=== PATIENT | male | born 1960 | race Caucasian/White ===

== ENCOUNTER 2019-05-09 13:05 | Inpatient (IN) | payer MEDICARE ==
[2019-05-09] MEDS ORDERED: Acetaminophen 325 MG TAB PO PRN (15:21)
[2019-05-09] MEDS ORDERED: Senokot S 8.6-50 MG TAB PO PRN (15:21)
[2019-05-09] MEDS ORDERED: Bisacodyl 10 MG SUPP PR PRN (15:21)
[2019-05-09] MEDS ORDERED: Labetalol HCl 100 MG/20 ML VIAL SLOW IVP PRN (15:21)
[2019-05-09] MEDS ORDERED: Dextrose 5% in Water 1,000 ML IV PRN (15:21)
[2019-05-09] MEDS ORDERED: Guaifenesin DM 100-10/5 ML UDCUP PO PRN (15:21)
[2019-05-09] MEDS ORDERED: Dextrose 50% Abboject 50 ML SYRINGE SLOW IVP PRN (15:21)
[2019-05-09] MEDS ORDERED: HumaLOG 300 UNITS/3 ML VIAL SC PRN (15:21)
[2019-05-09] MEDS ORDERED: Ondansetron PF 4 MG/2 ML Vial IVP PRN (15:21)
--- NOTE | 2019-05-09 16:09 | HP ---
REASON FOR ADMISSION: Possible CVA with left hemiparesis. HISTORY OF PRESENTING ILLNESS: The patient gives history of waking up on the floor yesterday. He apparently fell out of bed. This happened around 10 a.m. yesterday after the left to work at 9. He took a while for him to make it back to his bed. This morning when he woke up, he felt numbness on his entire left side. He had difficulty chewing. He has no teeth, but the patient was literally using his hand to crush his jaws together. This did not feel right for him, and the finally took him to [facility], from where he was transferred here for higher level of care. Has no complaints of trouble swallowing. No complaints of chest pain, palpitation, PND, or orthopnea. He normally ambulates to the mailbox and back in his house. He has always had left lower extremity weakness due to disk related spine injury. PAST MEDICAL AND SURGICAL HISTORY: Diabetes mellitus type 2, depression with psychosis, osteoarthritis, congenital absence of right thumb, prior history of lumbar disk disease with lumbar spine abscess, three back surgeries, appendectomy, cholecystectomy, tonsillectomy, prior history of psychiatric hospitalization, dementia. CURRENT MEDICATIONS: The patient is on, 1. Metformin 1000 mg twice daily. 2. Benztropine 1 mg twice daily. 3. Glimepiride 1 mg q.p.m. 4. Trazodone 100 mg p.o. at bedtime. 5. Escitalopram 20 mg p.o. daily. 6. Clonazepam 1 mg 3 times daily. 7. The patient's mentions that he cannot afford dementia medications including rivastigmine and Namenda. ALLERGIES: HE IS ALLERGIC TO BACTROBAN, CLINDAMYCIN, DIPHENHYDRAMINE, NORCO, PENICILLIN, SULFA, AND VANCOMYCIN. PERSONAL HISTORY: Does not abuse alcohol or drugs. No history of smoking. Lives with his . FAMILY HISTORY: Mother in her 60s. She had history of breast cancer with bilateral mastectomy with recurrence. Father is living and is in his 80s. He has known history of coronary artery disease. REVIEW OF SYSTEMS: CONSTITUTIONAL: Negative for weight loss or gain, ability to conduct usual activities. SKIN: Negative for rash, itching. EYES: Negative for double vision, pain. ENT/MOUTH: Negative for nose bleeding, neck stiffness, pain, tenderness. CARDIOVASCULAR: Negative for palpitations, dyspnea on exertion, orthopnea. RESPIRATORY: Negative for shortness of breath, wheezing, cough, hemoptysis, fever or night sweats. GASTROINTESTINAL: Negative for poor appetite, abdominal pain, heartburn, nausea, vomiting, constipation, or diarrhea. GENITOURINARY: Negative for urgency, frequency, dysuria, nocturia. MUSCULOSKELETAL: Negative for pain, swelling. NEUROLOGIC/PSYCHIATRIC: Negative for anxiety, depression. ALLERGY/IMMUNOLOGIC: Negative for skin rash, bleeding tendency. PHYSICAL EXAMINATION: GENERAL: The patient is a 59-year-old male, who is currently not in any acute distress. VITAL SIGNS: Blood pressure 150/74, pulse 60 per minute, respiratory rate 20 per minute, temperature 97.6 degrees Fahrenheit, saturating 100% on room air. NECK: Supple. No elevated JVD. HEENT: Eyes; extraocular muscles intact. Pupils are reacting to light. Oral cavity, mucous membranes are moist. No exudates or congestion. Please note, the patient has no teeth in his mouth. CARDIOVASCULAR: S1 and S2 heard. Regular rhythm. RESPIRATORY: Air entry 1+ bilateral. Scattered rhonchi plus. No rales or wheezes. ABDOMEN: Soft. Bowel sounds heard. No tenderness, rigidity, or guarding. EXTREMITIES: No peripheral edema or calf tenderness. VASCULAR: Peripheral pulses 1+ bilateral. No ischemic ulcerations or gangrene. CENTRAL NERVOUS SYSTEM: The patient appears to have voluntary withholding of movement of the left upper extremity. He has chronic left lower extremity weakness. He is able to move with gravity and a little 10 to 20 degrees above gravity in his left lower extremity. Left upper extremity: The patient can move it, and when asked to touch his finger, he does, but on second or third attempt, the patient tries to keep it close to his hand and has difficulty raising it up again. Likely has voluntary withholding. No facial droop. Extraocular muscles are intact. Gait was not tested. Reflexes are 2+ bilateral. Babinski is downgoing. PSYCHIATRIC: No obvious hallucinations or delusions. LABORATORY DATA: CT brain without contrast done showed no acute finding. Chest x-ray, no acute finding. EKG done shows sinus bradycardia at 57 beats per minute. There is poor R-wave progression. Serum glucose 184, BUN 11, creatinine 1.0, ALT 58, alkaline phosphatase 105, AST 32, total bilirubin 1.0, albumin 4.7. First set of troponin is negative. PT, INR, and PTT within normal limits. Hemoglobin and hematocrit 15 and 49, platelet count 389, MCV is 84 with white count of 8.8. CLINICAL IMPRESSION AND PLAN: The patient will be admitted to stroke unit for suspected left hemiparesis. The patient has had similar symptoms for nearly 24 to [address] scan done at [facility], does not reveal any structural findings of cerebrovascular accident on the CT scan. The patient also has voluntary withholding when he tries to move his extremities. He definitely has left lower extremity weakness, which appears to be chronic, but mentions that it has gotten more dense. We will obtain MRI in the morning. Neurology consultation with Dr. Mago Harrell. He will be on aspirin and Lipitor 40 mg daily. We will continue his home dose of Cogentin, trazodone, escitalopram as before, and glimepiride as well. Echo with 2D Doppler for left ventricular function and to rule out thrombus. He will be on mechanical soft heart healthy 1800 kilocalorie diet. We will continue to closely monitor him on stroke unit. Code status was discussed with him, and he wants to be a full code. Job ID: [id number]
[2019-05-09 17:47] VITALS: BMI 33.5
[2019-05-09] MEDS: Atorvastatin Calcium 40 MG TAB PO SCH (20:35)
[2019-05-09] MEDS: traZODone HCl 50 MG TAB PO SCH (20:36)
[2019-05-09] MEDS: clonazePAM 1 MG TAB PO SCH (20:36)
[2019-05-09] MEDS: Benztropine 1 MG TAB PO SCH (20:36)
[2019-05-10 04:49] LABS: #Basophils 0.1 thou/uL (0.0-0.2); #Eosinphils 0.2 thou/uL (0.0-0.7); #Lymphocytes 3.1 thou/uL (1.20-3.40); #Monocytes 0.7 thou/uL (0.11-0.59); #Neutrophils 3.8 thou/uL (1.40-6.50); %Basophils 0.8 % (0.0-1.0); %Lymphocytes 39.4 % (21.0-51.0); %Monocytes 8.4 % (0.0-10.0); %Neutrophils 48.4 % (42.0-75.0); Hemoglobin 13.6 g/dL (14.0-18.0); Mean Corpuscular HGB CONC 33.9 g/dL (32.0-36.0); Mean Corpuscular Hemoglobin 28.6 pg (27.0-31.0); Mean Corpuscular Volume 84.3 fL (78.0-98.0); Mean Platelet Volume 6.4 fL (7.4-10.4); Platelet Count 320 thou/uL (130-400); RBC Distribution Width 12.3 % (11.5-14.5); Red Blood Cell (RBC) Count 4.77 mill/uL (4.70-6.10); White Blood Cell (WBC) Count 7.8 thou/uL (4.8-10.8)
[2019-05-10 05:17] LABS: Anion Gap 11 mmol/L (10-20); BUN (Urea Nitrogen) 13 mg/dL (8.4-25.7); Calc. Creatinine Clearance 148 mL/min (70-130); Calcium 8.6 mg/dL (7.8-10.44); Carbon Dioxide 24 mmol/L (22-29); Cardiac Risk 5.1 (Less than 4.5); Chloride 104 mmol/L (98-107); Cholesterol 162 mg/dl (< 200 Desired); Estimated GFR-MDRD Greater than 90; Glucose 181 mg/dL (70-105); HDL Cholesterol 32 mg/dL (>60 Neg Risk); LDL Cholesterol, Calculated 90 mg/dL; Potassium 3.9 mmol/L (3.5-5.1); Sodium 135 mmol/L (136-145); Triglycerides 201 mg/dL (Less than 150)
[2019-05-10] MEDS ORDERED: Lorazepam 2 MG/ML VIAL SLOW IVP SCH (06:00)
[2019-05-10] MEDS: HumaLOG 300 UNITS/3 ML VIAL SC PRN ×3 (06:32→18:00)
[2019-05-10] MEDS ORDERED: Glimepiride 1 MG TAB PO SCH (08:00)
[2019-05-10] MEDS: Escitalopram Oxalate 20 mg Tablet PO SCH (09:11)
[2019-05-10] MEDS: Enoxaparin Sodium 40 MG/0.4 ML SYRINGE SC SCH (09:12)
[2019-05-10] MEDS: Benztropine 1 MG TAB PO SCH ×2 (09:12→20:43)
[2019-05-10] MEDS: Aspirin 81 mg Enteric Coated Tablet PO SCH (09:12)
[2019-05-10] MEDS: clonazePAM 1 MG TAB PO SCH ×3 (09:12→20:44)
--- NOTE | 2019-05-10 11:53 | CON ---
DATE OF CONSULTATION: 05/10/2019 This consult is via telemedicine. CHIEF COMPLAINT: Acute stroke. HISTORY OF PRESENT ILLNESS: The patient reports he fell out of bed while sleeping and this is the first time that ever happened to him, and he also felt the left side was weaker, and he also reports slurring of words and facial droop. He could not chew on the right side, so he was holding his jaw. This was the reason why he was brought into the hospital. No history of any numbness. The patient has no loss of consciousness. PAST MEDICAL HISTORY: 1. Lower back problems with multiple lower back surgeries and also a disk disease with lumbar spine abscess in the past resulting in baseline left lower extremity weakness. 2. Diabetes. 3. Depression with psychosis. 4. Osteoarthritis. 5. Congenital absence of the right thumb. PAST SURGICAL HISTORY: 1. Three back surgeries. 2. Cholecystectomy. 3. Tonsillectomy. HOME MEDICATIONS: 1. Metformin. 2. Benztropine. 3. Glimepiride. 4. Trazodone. 5. Escitalopram. 6. Clonazepam. He is on medicines for dementia, but he has not taken those due to financial issues. ALLERGIES: HE IS ALLERGIC TO: 1. BACTROBAN. 2. CLINDAMYCIN. 3. DIPHENHYDRAMINE. 4. NORCO. 5. PENICILLIN. 6. SULFA. 7. VANCOMYCIN. SOCIAL HISTORY: Nonsmoker. No alcohol. Lives with his . He is disabled. 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 FAMILY HISTORY: His mother in her 60s from breast cancer which metastasized to bone. He thinks she might have been in her late 60s to early 70s. Father is currently in his late 80s. He has coronary artery disease with stents and had a coronary bypass graft. He has 1 brother who is healthy. REVIEW OF SYSTEMS: PULMONARY: Negative for shortness of breath or cough. GI: Negative for nausea, vomiting, or diarrhea. PSYCHIATRIC: Positive for depression. NEUROLOGIC: Positive for left-sided weakness and falling out of bed. OPHTHALMOLOGIC: No double vision. ENT: Normal. LABORATORY DATA: White count is 7.8, hemoglobin 13.6, hematocrit 40.2, platelet count 320. Chemistry: Sodium 135, potassium 3.9, chloride 104, bicarb 24, BUN 13, creatinine 0.84, glucose 181, triglycerides 201, cholesterol 162, LDL 90, HDL 32. IMAGING STUDIES: His MRI is currently pending. PHYSICAL EXAMINATION: VITAL SIGNS: Temperature 97.5, pulse 57, blood pressure 139/83, respiratory rate is 20, O2 sats 99. GENERAL APPEARANCE: Well-built, well-nourished gentleman, who is comfortable in bed. In general exam, we can note that the patient had right upper extremity atrophy with absence of thumb on the right side. He also has a smaller right leg. In addition, most notable is jaw movement. CHEST: Clear vesicular breathing. CARDIOVASCULAR: S1, S2 heard. No murmurs. ABDOMEN: Soft. NEUROLOGICAL: Higher intellectual functions: Normal orientation to time, place, person. Appropriate conversation. Cranial nerves: 2 through 12 normal. Extraocular movements were abnormal with roving eye movements, more so on the right compared to left. He was unable to focus, but denied any double vision. Sensory: Decreased sensation on the left side of the face and mild facial asymmetry with left nasolabial fold flattening. Tongue midline. Normal elevation of palate. Normal hearing bilaterally. Motor: Bulk was decreased in the right upper extremity and congenital absence of thumb. Tone was normal bilaterally. Strength was 3/5 in the left side. In the right upper extremity, also the strength was 4/5. In the right lower, 5/5. Muscle groups tested are deltoid, biceps, triceps, wrist extension and flexion, finger extension and flexion, iliopsoas, hamstrings, quadriceps, ankle dorsiflexion and plantar flexion bilaterally. Cerebellar: Normal [id number] on the right. IMPRESSION AND PLAN: The patient with primary abnormality of absence of thumb on the right side and prior atrophy of the right side. He now presents with left-sided weakness after a fall from the bed and he fell out of bed during his sleep. On exam, he does have left-sided weakness along with sensory loss on the left side, and he has tardive dyskinesia in addition with the jaw and eye movements which is secondary to his prior exposure to Geodon. At this time, we need to establish whether he did have a stroke. I do suspect a mild ischemic event in basal ganglia on the right side, likely internal capsule event. I will wait for MRI scan to confirm suspicion of stroke. If he did have a stroke, please start him on aspirin along with statin. The patient also will need to see Dr. Richardson as outpatient for his tardive dyskinesia, and I will see him as needed. Please call me if you have any further questions. Job ID: [id number]
--- NOTE | 2019-05-10 15:11 | MRI ---
MRI brain without IV contrast: Multiplanar and multisequential imaging of brain obtained according to protocol. INDICATIONS: Stroke COMPARISON: none FINDINGS: Exam is degraded due to motion artifact. Ventricles have normal size shape and position. No evidence of restricted diffusion. Mild chronic ischemic white matter change. No evidence of mass or edema. Intracranial internal carotid arteries, proximal cerebral arteries, and basilar arteries show normal flow voids. Dural venous sinuses appear patent. Visualized paranasal sinuses and mastoids appear clear. Orbits appear unremarkable. Bony calvarium and soft tissues of the scalp appear unremarkable. IMPRESSION: No acute process identified
--- NOTE | 2019-05-10 17:35 | PDOC.HOSPP ---
- Subjective Encounter Date: 05/10/19 Encounter Time: 08:45 Subjective: no new complaints feels better is eating well - Objective Vital Signs & Weight: Vital Signs (12 hours) Temp Pulse Pulse Pulse Resp BP BP 05/10/19 15:19 97.3 F L 55 L 16 05/10/19 11:30 97.9 F 58 L 20 05/10/19 11:02 57 L 60 141/76 H 162/89 H 05/10/19 07:54 97.5 F L 57 L 20 BP Pulse Ox 05/10/19 15:19 151/81 H 98 05/10/19 11:30 144/82 H 99 05/10/19 11:02 05/10/19 07:54 139/83 99 Weight Admit Weight 247 lb 1.6 oz Weight 247 lb 1.6 oz I&O: 05/09/19 05/10/19 05/11/19 06:59 06:59 06:59 Intake Total 390 Output Total 1730 405 Balance -1340 -405 Result Diagrams: 05/10/19 04:31 05/10/19 04:31 Additional Labs: Accuchecks 05/10/19 05/10/19 05/10/19 16:43 10:39 06:03 POC Glucose 205 H 212 H 168 H 05/09/19 20:17 POC Glucose 159 H Hospitalist ROS - Medication Medications: Active Medications Generic Name Dose Route Start Last Admin Trade Name Freq PRN Reason Stop Dose Admin Acetaminophen 650 mg 05/09/19 15:21 05/09/19 18:07 Tylenol PO 650 mg Q4H PRN Administration Headache/Fever/Mild Pain (1-3) Aspirin 81 mg 05/10/19 09:00 05/10/19 09:12 Ecotrin PO 81 mg DAILY NIYA Administration Atorvastatin Calcium 40 mg 05/09/19 21:00 05/09/19 20:35 Lipitor PO 40 mg HS NIYA Administration Benztropine Mesylate 1 mg 05/09/19 21:00 05/10/19 09:12 Cogentin PO 1 mg BID NIYA Administration Clonazepam 1 mg 05/09/19 21:00 05/10/19 15:18 Klonopin PO 1 mg TID NIYA Administration Enoxaparin Sodium 40 mg 05/10/19 09:00 05/10/19 09:12 Lovenox SC 40 mg 0900 NIYA Administration Escitalopram Oxalate 20 mg 05/10/19 09:00 05/10/19 09:11 Lexapro PO 20 mg DAILY NIYA Administration Glimepiride 1 mg 05/10/19 08:00 05/10/19 11:55 Amaryl PO 1 mg QAM-WM NIYA Administration Insulin Human Lispro 0 units 05/09/19 15:21 05/10/19 11:54 Humalog SC 4 unit .MODERATE SLIDING SC PRN Administration Moderate Correctional Scale Sodium Chloride 10 ml 05/09/19 15:21 05/09/19 20:35 Flush - Normal Saline IVF 10 ml PRN PRN Administration Saline Flush Trazodone HCl 100 mg 05/09/19 21:00 05/09/19 20:36 Desyrel PO 100 mg HS NIYA Administration - Exam General Appearance: awake alert Eye: PERRL, anicteric sclera ENT: no oropharyngeal lesions, moist mucosa Neck: supple, no JVD Heart: RRR, no murmur Respiratory: no wheezes, no rales Gastrointestinal: soft, non-tender, non-distended, normal bowel sounds Extremities: no cyanosis, no edema Neurological: cranial nerve grossly intact Neurological - other findings: chronic left LE weakness with strength of 2-3/5 Psychiatric: A&O x 3 Hosp A/P (1) TIA (transient ischemic attack) Code(s): G45.9 - TRANSIENT CEREBRAL ISCHEMIC ATTACK, UNSPECIFIED Status: Acute (2) Dyslipidemia Code(s): E78.5 - HYPERLIPIDEMIA, UNSPECIFIED Status: Chronic (3) Depression Code(s): F32.9 - MAJOR DEPRESSIVE DISORDER, SINGLE EPISODE, UNSPECIFIED Status : Chronic Qualifiers: Depression Type: major depressive disorder Psychotic features: with psychotic features (4) Dementia Code(s): F03.90 - UNSPECIFIED DEMENTIA WITHOUT BEHAVIORAL DISTURBANCE Status: Chronic Qualifiers: Dementia type: unspecified type (5) DM type 2 (diabetes mellitus, type 2) Status: Chronic Qualifiers: Diabetes mellitus chcf insulin 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
[2019-05-10] MEDS: Atorvastatin Calcium 40 MG TAB PO SCH (20:43)
[2019-05-10] MEDS: traZODone HCl 50 MG TAB PO SCH (20:43)
[2019-05-10] MEDS ORDERED: Tamsulosin HCl 0.4 MG CAP PO SCH (21:00)
[2019-05-11] MEDS: HumaLOG 300 UNITS/3 ML VIAL SC PRN (06:13)
[2019-05-11 07:21] VITALS: BP 112/71; TEMP 97.5
[2019-05-11] MEDS ORDERED: Glimepiride 2 MG TAB PO SCH (07:30)
[2019-05-11] MEDS ORDERED: metFORMIN 500 MG TAB PO SCH (08:00)
[2019-05-11] MEDS: Enoxaparin Sodium 40 MG/0.4 ML SYRINGE SC SCH (08:50)
[2019-05-11] MEDS: Benztropine 1 MG TAB PO SCH (08:51)
[2019-05-11] MEDS: clonazePAM 1 MG TAB PO SCH (08:51)
[2019-05-11] MEDS: Escitalopram Oxalate 20 mg Tablet PO SCH (08:51)
[2019-05-11] MEDS: Aspirin 81 mg Enteric Coated Tablet PO SCH (08:51)
--- NOTE | 2019-05-11 17:37 | DIS ---
DATE OF ADMISSION: 05/09/2019 DATE OF DISCHARGE: 05/11/2019 DISCHARGE DISPOSITION: Home. PRIMARY DISCHARGE DIAGNOSIS: Transient ischemic attack. SECONDARY DISCHARGE DIAGNOSES: Diabetes mellitus type 2, dyslipidemia, depression, dementia, and chronic left lower extremity weakness. PROCEDURES DONE DURING HOSPITALIZATION: MRI brain done showed no acute process. Echo with 2D Doppler showed EF of 60% to 65%. H and H are 13 and 40, platelet count 320, and MCV is 84. BUN 13 and creatinine 0.8. Triglycerides 201, cholesterol 162, LDL 90, and HDL 32. DISCHARGE MEDICATIONS: 1. Klonopin 1 mg p.o. 3 times daily. 2. Benztropine 1 mg p.o. twice daily. 3. Escitalopram 20 mg p.o. daily. 4. Glimepiride 2 mg twice daily. 5. Metformin 1000 mg twice daily. 6. Trazodone 100 mg p.o. at bedtime. 7. Aspirin 81 mg p.o. daily. 8. Atorvastatin 40 mg p.o. at bedtime. ALLERGIES: TO CLINDAMYCIN, DIPHENHYDRAMINE, HYDROCODONE, MUPIROCIN, PENICILLIN, SULFA, AND VANCOMYCIN. DISCHARGE PLAN: The patient to follow up with his primary care physician, Dr. Connolly in 1 week. BRIEF COURSE DURING HOSPITALIZATION: The patient initially was brought to emergency room by his with the patient having fallen out of his bed and with increasing weakness on the left side. He has known history of left lower extremity weakness. The patient also had difficulty chewing prior to arrival. In view of this history, the patient was admitted to stroke unit for complete workup. He has had a CT brain in [place], which did not reveal any findings of CVA and MRI confirmed the same. The patient has ambulated with physical therapy. He has remained hemodynamically and neurologically stable prior to discharge. He was placed on aspirin and Lipitor prior to discharge. He needs to follow up with Dr. Connolly, his primary care physician in 1 week. Please note, I have seen and examined the patient on the day of discharge. Job ID: [id number]
== END 2019-05-11 10:51 | disposition home or self-care (01) | DRG 69 ==
LOC: ERS 13:05 → 2SE 13:52
PROVIDERS: ADMIT Internal Medicine; ATTEND Internal Medicine
DX: G45.9 Transient cerebral ischemic attack, unspecified (principal); F32.3 Major depressive disorder, single episode, severe with psychotic features; E78.5 Hyperlipidemia, unspecified; E11.9 Type 2 diabetes mellitus without complications; F03.90 Unspecified dementia, unspecified severity, without behavioral disturbance, psychotic disturbance, mood disturbance, and anxiety; G83.14 Monoplegia of lower limb affecting left nondominant side; M19.90 Unspecified osteoarthritis, unspecified site; Z88.1 Allergy status to other antibiotic agents; Z88.8 Allergy status to other drugs, medicaments and biological substances; Z79.899 Other long term (current) drug therapy; Z79.84 Long term (current) use of oral hypoglycemic drugs; Z90.49 Acquired absence of other specified parts of digestive tract; Z88.0 Allergy status to penicillin; Z88.2 Allergy status to sulfonamides; Q71.31 Congenital absence of right hand and finger
CPT/HCPCS: 36415; 36416; 70551; 80048; 80061; 85025; 93306; J1650; J2060

== ENCOUNTER 2019-12-07 17:41 | Inpatient (IN) | payer MEDICARE, OTHER ==
[2019-12-07 20:54] VITALS: BMI 29.7
[2019-12-07] MEDS ORDERED: Aspirin 325 MG TAB PO SCH (21:00)
[2019-12-07] MEDS ORDERED: Ondansetron ODT 4 MG TAB SL PRN (21:00)
[2019-12-07] MEDS ORDERED: Acetaminophen 325 MG TAB PO PRN (21:00)
[2019-12-07] MEDS ORDERED: Sodium Chloride 0.9% 1,000 ML IV SCH (21:00)
[2019-12-07] MEDS ORDERED: Ondansetron PF 4 MG/2 ML Vial IVP PRN (21:00)
--- NOTE | 2019-12-07 22:41 | PDOC.HHP ---
Hospitalist HPI - History of Present Illness left sided weakness History of Present Illness: MR. Goel is a 59M with a pmhx of CVA with residual L sided deficits, Alzheimer's dementia, DM, BPH, DDD, depression who was brought in by his to [place] ER for worsening of his left sided weakness. Per ED report, states that over the past three days he has been having more difficulty swallowing and increased L sided weakness. states that since pt's insurance changes in April of 2019, and a falling out with his PCP he has not been on any of his home medications in a year. Patient also reports syncopal episodes that have been happening weekly since April of this year. Endorses frequent dizziness. Has prodrome of nausea and dizziness. Pt has been under increasing amounts of stress with recent diagnosis of prostate cancer in his father, and that his syncopal episodes have gotten worse. Pt denies melena, hematochezia. Denies chest pain, SOB, palpitations. In the ED, initial vital signs 152/85, 54, 18, 100% on RA. Head CT showed old lacunar infarct, but no acute pathology. H/H 13.0/40.5. CXR no acute pathology, Mg 1.7, Ca 8.8. lactic acid 1.6. Troponin 0.016. Pt received 325 mg ASA. Hospitalist ROS - Review of Systems Constitutional: denies: fever, chills, sweats, weakness, malaise, other Eyes: denies: pain, vision change, conjunctivae inflammation, eyelid inflammation, redness, other ENT: denies: ear pain, ear discharge, nose pain, nose discharge, nose congestion, mouth pain, mouth swelling, throat pain, throat swelling, other Respiratory: denies: cough, dry, shortness of breath, hemoptysis, SOB with excertion, pleuritic pain, sputum, wheezing, other Cardiovascular: reports: light headedness. denies: chest pain, palpitations, orthopnea, paroxysmal noc. dyspnea, edema, other Gastrointestinal: denies: nausea, vomiting, abdominal pain, diarrhea, constipation, melena, hematochezia, other Genitourinary: denies: dysuria, frequency, incontinence, hematuria, retention, other Musculoskeletal: denies: neck pain, shoulder pain, arm pain, back pain, hand pain, leg pain, foot pain, other Neurological: reports: weakness, numbness, confusion. denies: incoordination, change in speech, seizures Other: Endorses depression, SI. Changes to sleep, poor appetite, poor concentration and confusion. - Medication Medications: Pt currently takes no home medications due to insurance issues. Allergies to many abx including clindamycin, mupirocin, penicillins Hospitalist History - Past Medical History Other Medical History: Medical History of: CVA with residual L sided deficits Alzheimer's dementia Depression T2 Diabetes Mellitus BPH DDD - Past Surgical History Other Surgical History: Appendectomy, cholecystectomy, lumbar surgery - Social History Smoking Status: Current every day smoker Tobacco Type: cigarettes Alcohol: reports: None Drugs: reports: marijuana Living Situation: With Family Activity level: independent ambulation - Exam General Appearance: NAD, awake alert Eye: PERRL, anicteric sclera ENT: normocephalic atraumatic, no oropharyngeal lesions, moist mucosa Neck: supple, symmetric, no JVD, no thyromegaly, no lymphadenopathy, no carotid bruit Heart: RRR, no murmur, no gallops, no rubs, normal peripheral pulses Respiratory: CTAB, no wheezes, no rales, no ronchi, normal chest expansion, no tachypnea, normal percussion Gastrointestinal: soft, non-tender, non-distended, normal bowel sounds, no palpable masses, no hepatomegaly, no splenomegaly, no bruit Extremities: no cyanosis, no clubbing, no edema Skin: normal turgor, no lesions, no rashes Neurological: cranial nerve grossly intact, normal sensation to touch Neurological - other findings: LUE 4/5 LLE 4/5 Psychiatric: normal affect, normal behavior, A&O x 3 Hospitalist Results - Labs Result Diagrams: 12/08/19 04:35 12/08/19 04:35 Hospitalist H&P A/P - Problem (1) TIA (transient ischemic attack) Code(s): G45.9 - TRANSIENT CEREBRAL ISCHEMIC ATTACK, UNSPECIFIED Status: Acute (2) DM type 2 (diabetes mellitus, type 2) Status: Chronic Qualifiers: Diabetes mellitus 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 insulin use: without 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 use (3) Dementia Code(s): F03.90 - UNSPECIFIED DEMENTIA WITHOUT BEHAVIORAL DISTURBANCE Status: Chronic Qualifiers: Dementia type: unspecified type (4) Depression Code(s): F32.9 - MAJOR DEPRESSIVE DISORDER, SINGLE EPISODE, UNSPECIFIED Status: Chronic Qualifiers: Depression Type: major depressive disorder (5) Dyslipidemia Code(s): E78.5 - HYPERLIPIDEMIA, UNSPECIFIED Status: Chronic (6) Syncope Code(s): R55 - SYNCOPE AND COLLAPSE Status: Acute - Plan Plan: Left sided weakness: 59M hx of CVA with residual left sided deficits p/w worsening L -sided weakness and confusion. CT brain showed old lacunar infarct but no acute changes. On exam pt with 4/5 strgnth to left upper and lower extremity. AOx4. Received 325 ASA. PLAN: -Telemetry -MRI in am -Neurology consult -TSH, Mg, Phos -Vitamin B12, folate levels -Q4 neuro checks -Continue ASA Syncope: Pt with multiple syncopal episodes occurring weekly. Question autonomic dysfunction. On telemtery pt in sinus bradycardia to 40s. Question POTS. Consider event monitor for occult arrhythmia. H/H 13.0/40.5. PLAN: -Tele -TSH, Mg, Phos -Carotid US -Orthostatic VS Depression with Suicidal Ideation: Hx of depression with psychosis. Also history of Alzehimer's dementia. Question if component of pseudodementia since patient has been off psych meds since April and has worsening confusion over the past year. On exam pt endorses SI with plan. Endorses sleep disturbance, inability to concentrate, and poor appetite. History of prior attempt in 2003. PLAN: -SI precautions -Constant observation -Psych consult once medically stable T2DM: Hx of T2DM, non-compliant with home medications. Pt does not check is sugars at home. PLAN: -ACHS glucose checks, ISS -HgA1c Hyperlipidemia: Hx of HLD, no longer taking statin 2/2 insurance issues. Will re-start and check lipid levels. PLAN: -Re-start statin -Lipid panel Tobaco Abuse: Daily smoker. Counseled about smoking cessation. DVT prophylaxis: Lovenox FULL CODE: Pt named his as MDM. Case discussed with Dr. Yanes attending physician.
[2019-12-07] MEDS ORDERED: Dextrose 50% Abboject 50 ML SYRINGE SLOW IVP PRN (23:47)
[2019-12-07] MEDS ORDERED: Dextrose 5% in Water 1,000 ML IV PRN (23:47)
[2019-12-07] MEDS ORDERED: HumaLOG 300 UNITS/3 ML VIAL SC PRN (23:47)
[2019-12-08 04:59] LABS: #Eosinphils 0.2 thou/uL (0.0-0.7); #Lymphocytes 2.6 thou/uL (1.20-3.40); #Monocytes 0.5 thou/uL (0.11-0.59); %Basophils 0.7 % (0.0-1.0); %Eosinophils 3.6 % (0.0-10.0); %Lymphocytes 40.6 % (21.0-51.0); %Monocytes 8.3 % (0.0-10.0); %Neutrophils 46.7 % (42.0-75.0); Hemoglobin 12.2 g/dL (14.0-18.0); Mean Corpuscular HGB CONC 32.4 g/dL (32.0-36.0); Mean Corpuscular Hemoglobin 28.6 pg (27.0-31.0); Mean Corpuscular Volume 88.1 fL (78.0-98.0); Mean Platelet Volume 6.9 fL (7.4-10.4); Platelet Count 297 thou/uL (130-400); Red Blood Cell (RBC) Count 4.26 mill/uL (4.70-6.10); White Blood Cell (WBC) Count 6.4 thou/uL (4.8-10.8)
[2019-12-08 05:19] LABS: Anion Gap 11 mmol/L (10-20); BUN (Urea Nitrogen) 8 mg/dL (8.4-25.7); Calc. Creatinine Clearance 154 mL/min (70-130); Calcium 8.4 mg/dL (7.8-10.44); Carbon Dioxide 25 mmol/L (22-29); Chloride 106 mmol/L (98-107); Estimated GFR-MDRD Greater than 90; Glucose 123 mg/dL (70-105); Potassium 3.9 mmol/L (3.5-5.1); Sodium 138 mmol/L (136-145)
[2019-12-08] MEDS ORDERED: Enoxaparin Sodium 40 MG/0.4 ML SYRINGE SC SCH (09:00)
[2019-12-08] MEDS ORDERED: Lorazepam 2 MG/ML VIAL SLOW IVP SCH (09:15)
--- NOTE | 2019-12-08 09:25 | ULT ---
BILATERAL CAROTID DUPLEX ULTRASOUND: HISTORY: Carotid bruit, TIA. FINDINGS: Rela-time color Doppler evaluation of the right and left carotid system shows some mild plaque format ion bilaterally more prominent at the origin of the right internal carotid artery. On the right side, peak systolic velocity of the common carotid are 88 cm/s. Internal carotid veloci ty is 85 cm/s. External carotid velocity is 99 cm/s. On the left side, peak systolic velocity of the common carotid are 80 cm/s. Internal carotid velocit y is 86 cm/s. External carotid velocity is 100 cm/s. Vertebral flow is antegrade bilaterally. IMPRESSION: No evidence of hemodynamically significant stenosis of either internal carotid artery. POS: [facility]
--- NOTE | 2019-12-08 12:23 | PDOC.HOSPP ---
- Subjective Encounter Date: 12/08/19 Encounter Time: 10:15 Subjective: awake, responds well to verbal stimuli is moving all extremities but weaker on left side says he has trouble swallowing with cva he sustained in apr of last year and it just got worse he ambulates at home wo assistive devices - Objective Vital Signs & Weight: Vital Signs (12 hours) Temp Pulse Resp BP Pulse Ox 12/08/19 10:55 97.8 F 56 L 18 123/72 97 12/08/19 07:10 97.6 F 46 L 18 138/70 97 12/08/19 03:47 97.6 F 44 L 16 131/63 98 Weight Admit Weight 219 lb 9.6 oz Weight 219 lb 9.6 oz I&O: 12/07/19 12/08/19 12/09/19 06:59 06:59 06:59 Intake Total 1120 Balance 1120 Result Diagrams: 12/08/19 04:35 12/08/19 04:35 Additional Labs: Accuchecks 12/08/19 12/08/19 11:03 06:00 POC Glucose 148 H 122 H Hospitalist ROS - Medication Medications: Active Medications Generic Name Dose Route Start Last Admin Trade Name Freq PRN Reason Stop Dose Admin Enoxaparin Sodium 40 mg 12/08/19 09:00 12/08/19 10:18 Enoxaparin Sodium 40 Mg/0.4 Ml Syringe SC 40 mg 0900 NIYA Administration Lorazepam 1 mg 12/08/19 09:15 12/08/19 10:18 Lorazepam 2 Mg/Ml Vial SLOW IVP 12/08/19 16:00 1 mg 0915 NIYA Administration - Exam General Appearance: awake alert Eye: PERRL, anicteric sclera ENT: no oropharyngeal lesions, moist mucosa Neck: supple, no JVD Heart: RRR, no murmur Respiratory: no wheezes, no rales Gastrointestinal: soft, non-tender, non-distended, normal bowel sounds Extremities: no cyanosis, no edema Neurological - other findings: left hemiparesis Psychiatric: A&O x 3 Hosp A/P (1) Hemiparesis and other late effects of cerebrovascular accident Code(s): I69.359 - HEMIPLGA FOLLOWING CEREBRAL INFARCTION AFFECTING UNSP SIDE; I69.398 - OTHER SEQUELAE OF CEREBRAL INFARCTION Status: Acute (2) TIA (transient ischemic attack) Code(s): G45.9 - TRANSIENT CEREBRAL ISCHEMIC ATTACK, UNSPECIFIED Status: Acute (3) DM type 2 (diabetes mellitus, type 2) Status: Chronic Qualifiers: Diabetes mellitus terminologist insulin use: without terminologist use (4) Depression Code(s): F32.9 - MAJOR DEPRESSIVE DISORDER, SINGLE EPISODE, UNSPECIFIED Status: Chronic Qualifiers: Depression Type: major depressive disorder (5) Dyslipidemia Code(s): E78.5 - HYPERLIPIDEMIA, UNSPECIFIED Status: Chronic (6) Suicidal ideation Code(s): R45.851 - SUICIDAL IDEATIONS Status: Suspected - Plan await MRI results, clinically has around 3/5 strength over left side, speech is getting better (I can clearly understand) speech to eval his dysphagia on asp, lipitor, humalog coverage apparently patient had suicidal ideation and intent to kill himself with a gun at home per staff, has 1:1 sitter on watch. to ambulate as tolerated
[2019-12-08] MEDS ORDERED: Acetaminophen 500 MG TAB PO PRN (13:28)
--- NOTE | 2019-12-08 13:54 | MRI ---
MRI OF THE BRAIN WITHOUT CONTRAST: 12/08/19 INDICTIONS: Left side weakness and left vision change. Comparison made to MRI of the brain dated 05/10/19. FINDINGS: Motion artifact degrades the exam. Ventricles have normal size and position. Mild chronic ischemic white matter changes appear stable. No evidence of restricted diffusion. There is no evidence of acute infarct, mass, hemorrhage, or jhon a. Intracranial internal carotid arteries and proximal cerebral arteries demonstrate flow voids. Dural v enous sinuses appear patent. Paranasal sinuses appear clear. IMPRESSION: 1. No acute finding. 2. No interval change from recent exam. POS: AH
[2019-12-08] MEDS ORDERED: Aspirin 81 mg Enteric Coated Tablet PO SCH ×2 (14:15)
--- NOTE | 2019-12-08 14:18 | CON ---
NEUROLOGY CONSULTATION DATE OF CONSULTATION: 12/08/2019 REASON FOR CONSULTATION: Worsening left-sided weakness. HISTORY OF PRESENT ILLNESS: Mr. Goel is a 59-year-old male with medical history significant for prior CVA with residual left-sided deficits, dysphagia, Alzheimer dementia, diabetes, benign prostatic hyperplasia, depression, presented to the emergency room by his as a transfer from the [facility] for worsening left-sided weakness. Per , for the last 3 weeks, he has been having more difficulty in swallowing and worsening left-sided weakness, he also had syncopal episodes, which were happening on a weekly basis. The also explains episodes of altered mentation, during which he is extremely confused and at times there has been situation where he does not even recognize his or other family members. These episodes resolve on their own and he has been having ongoing memory issues, dizziness with nausea and vomiting. He also has been under extreme amount of stress because of the recent diagnosis of prostate cancer in his father. The patient denies headache, abdominal pain, chest pain, recent illness, or recent exposure to COVID. - Review of Systems Constitutional: denies: fever, chills, sweats, weakness, malaise, other Eyes: denies: pain, vision change, conjunctivae inflammation, eyelid inflammation, redness, other ENT: denies: ear pain, ear discharge, nose pain, nose discharge, nose congestion, mouth pain, mouth swelling, throat pain, throat swelling, other Respiratory: denies: cough, dry, shortness of breath, hemoptysis, SOB with excertion, pleuritic pain, sputum, wheezing, other Cardiovascular: reports: light headedness. denies: chest pain, palpitations, orthopnea, paroxysmal noc. dyspnea, edema, other Gastrointestinal: denies: nausea, vomiting, abdominal pain, diarrhea, constipation, melena, hematochezia, other Genitourinary: denies: dysuria, frequency, incontinence, hematuria, retention, other Musculoskeletal: denies: neck pain, shoulder pain, arm pain, back pain, hand pain, leg pain, foot pain, other Neurological: reports: weakness, numbness, confusion. denies: incoordination, change in speech, seizures - Objective Vital Signs & Weight: Vital Signs (12 hours) Temp Pulse Resp BP Pulse Ox 12/08/19 10:55 97.8 F 56 L 18 123/72 97 12/08/19 07:10 97.6 F 46 L 18 138/70 97 12/08/19 03:47 97.6 F 44 L 16 131/63 98 Weight Admit Weight 219 lb 9.6 oz Weight 219 lb 9.6 oz I&O: 12/07/19 12/08/19 12/09/19 06:59 06:59 06:59 Intake Total 1120 Balance 1120 - Exam General Appearance: NAD, awake alert Eye: PERRL, anicteric sclera ENT: normocephalic atraumatic, no oropharyngeal lesions, moist mucosa Neck: supple, symmetric, no JVD, no thyromegaly, no lymphadenopathy, no carotid bruit Heart: RRR, no murmur, no gallops, no rubs, normal peripheral pulses Respiratory: CTAB, no wheezes, no rales, no ronchi, normal chest expansion, no tachypnea, normal percussion Gastrointestinal: soft, non-tender, non-distended, normal bowel sounds, no palpable masses, no hepatomegaly, no splenomegaly, no bruit Extremities: no cyanosis, no clubbing, no edema Skin: normal turgor, no lesions, no rashes Neurological: Mental status, the patient is alert and oriented to person and place cranial nerves 2 through 12 are intact except 9 and 10 with dysarthria and 7 with left facial droop. Motor, muscle tone and bulk are normal. Strength 4/5 in the left upper and lower extremities, 5/5 in the right upper and lower extremities. Sensory, withdraws to nailbed pressure bilaterally, right greater than left. Cerebellar, slow in the left secondary to weakness. Gait deferred due to the patient's safety reasons. MEDICATIONS: None. The patient has stopped taking all the medications due to insurance issues. ALLERGIES: CLINDAMYCIN, MUPIROCIN, AND PENICILLIN. PAST MEDICAL HISTORY: CVA with residual left-sided deficits, Alzheimer dementia, depression, diabetes mellitus, benign prostatic hyperplasia, and DDD. PAST SURGICAL HISTORY: Appendectomy, cholecystectomy, lumbar surgery. SOCIAL HISTORY: Lives with his family. Independent ambulation. Denies alcohol. He does smoke cigarettes everyday and marijuana. DATA REVIEWED: I reviewed the CT scan, which was negative for acute intracranial pathology. ASSESSMENT AND PLAN: (1) TIA (transient ischemic attack) Code(s): G45.9 - TRANSIENT CEREBRAL ISCHEMIC ATTACK, UNSPECIFIED Status: Acute (2) DM type 2 (diabetes mellitus, type 2) Status: Chronic Qualifiers: Diabetes mellitus assistant terminal manager insulin use: without assistant terminal manager use (3) Dementia Code(s): F03.90 - UNSPECIFIED DEMENTIA WITHOUT BEHAVIORAL DISTURBANCE Status: Chronic Qualifiers: Dementia type: unspecified type (4) Depression Code(s): F32.9 - MAJOR DEPRESSIVE DISORDER, SINGLE EPISODE, UNSPECIFIED Status: Chronic Qualifiers: Depression Type: major depressive disorder Psychotic features: with psychotic features (5) Dyslipidemia Code(s): E78.5 - HYPERLIPIDEMIA, UNSPECIFIED Status: Chronic (6) Syncope Code(s): R55 - SYNCOPE AND COLLAPSE Status: Acute Mr. Tin Goel is a 59-year-old male, who was presented with worsening left-sided weakness and dysphagia. The patient has been without medications because of insurance issues. Start aspirin and high- intensity statin for secondary stroke prevention. MRI to rule out acute intracranial process. 2D echo, carotid Dopplers, and telemetry. Check hemoglobin A1c, fasting lipid panel, and TSH. Neuro checks every 4 hours. Continue aspirin and high- intensity statin for secondary stroke prevention. Permissive control of blood pressure at this time. Strict control of blood glucose. Telemetry to rule out arrhythmias. PT/OT/Speech. Continue medical management per primary team. The patient counseled about tobacco abuse. DVT prophylaxis. For ongoing memory issues, consider EEG to rule out underlying cortical irritability. We will continue to follow. Thank you for the consult. Job ID: [id number] MTDD
[2019-12-08] MEDS: Acetaminophen 500 MG TAB PO PRN (14:50)
[2019-12-08 15:03] LABS: SARS-CoV-2 MS2 Positive; SARS-CoV-2 N Gene Negative; SARS-CoV-2 S Gene Negative; SARS-CoV-2 by NAA Not Detected (NotDetected); SARS-CoV-2 orf1ab Negative
--- NOTE | 2019-12-08 21:17 | CON ---
DATE OF CONSULTATION: 12/08/2019 REASON FOR CONSULTATION: Bradycardia with history of syncope. HISTORY OF PRESENT ILLNESS: Mr. Goel is a 59-year-old gentleman. He also had history of stroke. He was admitted to the hospital on this occasion with probable recurrent stroke. It has been noted that his heart rate is frequently in the 40s, sometimes in the 30s here. Also has had 2.1 second pauses. He has no chest pain or pressure. He does have some dementia. Fortunately, his partner is very helpful in his care. He is on no beta blockers or digoxin or any other medicine like calcium blockers to lower the heart rate. His partner says that he has passed out multiple times in the last seven years with increasing frequency. Sometimes he gets up and walks and feels lightheaded and does not sit down and faints, but other times, he can just be standing and suddenly faint. MEDICATIONS: At home, he was on MiraLAX. SOCIAL HISTORY: He does smoke. He states "half packs cigarettes per day." He does have his partner, who seems very helpful to him. PHYSICAL EXAMINATION: VITAL SIGNS: Blood pressure 123/72 and pulse 56 and regular. LUNGS: Clear. CARDIAC: Normal S1. Normal S2. ABDOMEN: Soft and nontender. EXTREMITIES: Warm and dry. No clubbing. No cyanosis. There is no edema. Good peripheral pulses. LABORATORY DATA: EKG, sinus bradycardia. At 5 o'clock this morning, he has had a heart rate of about 30 pause, other times he has a heart rate in the 40s during the waking hours. Echocardiogram is ordered. ASSESSMENT: 1. Syncopal episodes, heart rate likely playing some role orthostatic hypotension, but I think very likely, the heart rate is playing some role in his recurrent syncope. 2. Recurrent strokes of uncertain etiology. PLAN: 1. Echocardiogram. 2. Would advise pacemaker insertion. Discussed risk with the partner, significant other; bleeding, infection around the lung, and lead dislodgement. Dr. Santana will also discuss this with the family. We will notify Dr. Santana. We will follow along. I think he is going to have a swallow study done tomorrow, but we would recommend getting the pacemaker done this admission, we will notify Dr. Santana. As mentioned, we will order echocardiogram. Job ID: [id number]
[2019-12-08] MEDS: Atorvastatin Calcium 40 MG TAB PO SCH (21:30)
[2019-12-09] MEDS: Acetaminophen 500 MG TAB PO PRN (00:10)
[2019-12-09 00:51] LABS: Actual Bicarbonate (HCO3a) 22.9 mEq/L (22-28); Base Excess (BEa) -0.2 mEq/L (-2.0 to +3.0); CO2 Tension 33.2 mmHg (35.0-45.0); Calcium, Ionized (arterial) 1.17 mmol/L (1.12-1.30); Carboxyhemoglobin (COHb) 0.5 gm% (0.0-3.0); Hemoglobin (Hb) 13.9 g/dL (14.0-18.0); O2 Tension (PaO2), arterial 96.8 mmHg (> 80.0); pH, Arterial 7.46 (7.35-7.45)
[2019-12-09 00:55] LABS: #Basophils 0.1 thou/uL (0.0-0.2); #Eosinphils 0.2 thou/uL (0.0-0.7); #Lymphocytes 3.7 thou/uL (1.20-3.40); #Monocytes 0.6 thou/uL (0.11-0.59); #Neutrophils 3.3 thou/uL (1.40-6.50); %Basophils 0.8 % (0.0-1.0); %Eosinophils 2.6 % (0.0-10.0); %Lymphocytes 46.9 % (21.0-51.0); %Monocytes 7.8 % (0.0-10.0); %Neutrophils 41.9 % (42.0-75.0); Hemoglobin 13.8 g/dL (14.0-18.0); Mean Corpuscular HGB CONC 34.2 g/dL (32.0-36.0); Mean Corpuscular Hemoglobin 29.6 pg (27.0-31.0); Mean Corpuscular Volume 86.6 fL (78.0-98.0); Mean Platelet Volume 6.8 fL (7.4-10.4); Platelet Count 322 thou/uL (130-400); Red Blood Cell (RBC) Count 4.67 mill/uL (4.70-6.10); White Blood Cell (WBC) Count 7.9 thou/uL (4.8-10.8)
[2019-12-09 01:02] LABS: PTT 37.8 sec (22.9-36.1); Prothrombin Time 13.9 sec (12.0-14.7)
[2019-12-09 01:14] LABS: Anion Gap 15 mmol/L (10-20); BUN (Urea Nitrogen) 10 mg/dL (8.4-25.7); CK (CPK) 177 U/L (30-200); Calc. Creatinine Clearance 146 mL/min (70-130); Calcium 8.8 mg/dL (7.8-10.44); Carbon Dioxide 22 mmol/L (22-29); Chloride 104 mmol/L (98-107); Estimated GFR-MDRD Greater than 90; Glucose 126 mg/dL (70-105); Potassium 3.9 mmol/L (3.5-5.1); Sodium 137 mmol/L (136-145)
[2019-12-09 01:19] LABS: CKMB 5.8 ng/mL (0-6.6); Troponin I Less than 0.010 ng/mL (< 0.028)
--- NOTE | 2019-12-09 02:06 | PDOC.EVN ---
Event Note - Event Note Event Note: 0030: Code Vijay called for altered mental status. Nursing noted patient to have a change in his baseline mental status. Pt alert and talking with staff, then unresponsive to verbal stimuli. Vital signs BP 190/100, HR 40s, O2 sat 97%. Pt evaluated at bedside. Responsive to sternal rub. Responds "I don't feel good". Unable to follow commands. Spontaneous movements of R upper and lower extremities, but not of L. Pupils constricted with left lateral gaze. No nystagmus. RRR, lungs CTAB, abdomen soft. EKG showed sinus bradycardia with normal QT interval, normal [place] interval and no evidence of block. Pt brought to CT scanner. No evidence of herniation, edema, or acute hemorrhage on my review. ABG, CBC, BMP, coags, troponin, lactic acid, prolactin ordered. Pt given 325 of ASA. Pt not a candidate for TPA due to uncontrolled hypertension and lovenox. Pt transferred to IMCU for closer monitoring. Neurology on case with EEG ordered. Question CVA vs seizure. Also question if these are the "syncopal episodes" patient has been describing that occur weekly since April. Pt seen and evaluated by Dr. Santiago who is in agreement with assessment and plan. Carlos Harrell PA-C [id number] 12/09/2019
--- NOTE | 2019-12-09 08:44 | PRG ---
DATE OF SERVICE: 12/09/2019 SUBJECTIVE: Mr. Goel had another episode of unresponsiveness actually early this morning. He was moved to the intermediate care unit. His heart rate was in the low 40s. He is back to his baseline now. OBJECTIVE: VITAL SIGNS: Blood pressure is 176/86 now. Pulse is in the 50s. LUNGS: Clear. CARDIAC: Normal S1 and normal S2. ASSESSMENT: 1. Episodes of sinus bradycardia. 2. Long history of episodes of being unresponsive. 3. Heart rates intermittently in the low 40s, at times in the 30s. PLAN: Awaiting echocardiogram. If that is within normal limits, it would be reasonable to proceed to pacemaker insertion. I discussed the risks again with the patient. Bleeding, infection around the lung, and lead dislodgement. I also explained to the patient's yesterday that I think this will completely solve all his problems, but I think it should be helpful at least excluding the component of bradycardia associated with these episodes. They understand and wished to proceed. Awaiting echocardiogram. The patient is n.p.o. now and the Lovenox is on hold. Dr. Santana is aware. I did call both phone numbers in the chart to try to speak with the patient's , again neither phone number was available, could not be reached, I did call both numbers. Job ID: [id number]
[2019-12-09] MEDS ORDERED: Aspirin 300 MG Suppository PR SCH (09:00)
--- NOTE | 2019-12-09 10:26 | CT ---
PRELIMINARY REPORT/[facility]/EMERGENCY AFTER HOURS PROCEDURE: EXAM: CT Head Without Intravenous Contrast. CLINICAL HISTORY: M60, AMS, EVAL FOR ICH TECHNIQUE: Axial computed tomography images of the head/brain without intravenous contrast. COMPARISON: CT\SR - CT STROKE PROTOCOL - 12/07/2019 02:52 PM CDT FINDINGS: BRAIN: No acute intraparenchymal hemorrhage. No mass lesion. No CT evidence for acute territorial inf arct. No midline shift or extra-axial collection. VENTRICLES: No hydrocephalus. ORBITS: The orbits are unremarkable. SINUSES AND MASTOIDS: The paranasal sinuses and mastoid air cells are clear. SOFT TISSUES: No significant facial or scalp soft tissue swelling evident. No radiopaque foreign body is seen. BONES: No acute skull fracture. IMPRESSION: No acute intracranial abnormality. ELECTRONICALLY SIGNED BY: Radha Brock MD Dec 09, 2019 1:08:48 AM CDT FINAL REPORT EMERGENT AFTER HOURS NONCONTRAST CT HEAD: HISTORY: Altered mental status. Evaluate for intracranial hemorrhage. COMPARISON: 05/09/2019. IMPRESSION: 1. No acute intracranial abnormality is demonstrated. CT head is stable compared to prior study. 2. Findings are in agreement with the preliminary report by [facility]. Transcribed Date/Time: 12/09/2019 11:18 AM
[2019-12-09] MEDS: Aspirin 81 mg Enteric Coated Tablet PO SCH (10:39)
--- NOTE | 2019-12-09 12:16 | RAD ---
Exam: Modified barium swallow HISTORY: Dysphagia, unspecified. Dysphagia oral pharyngeal phase. Feeding difficulties Exposure: 2.3 minutes. 0.993 mendes per centimeter square FINDINGS: The presence speech pathologist, the patient missed a thin liquid, nectar thick, honey thic k, pudding and solid consistencies. There is premature spillage and aspiration with multiple consistencies. Please refer to speech pathologist report IMPRESSION: Please for to speech pathologist report.
--- NOTE | 2019-12-09 12:47 | PDOC.HOSPP ---
- Subjective Encounter Date: 12/09/19 Encounter Time: 11:30 Subjective: awake, at bedside responds well to verbal questions is moving all extremities, is weaker on left chronically from prior cva no chest pain or palp - Objective Vital Signs & Weight: Vital Signs (12 hours) Temp Pulse Ox 12/09/19 11:00 97.5 F L 12/09/19 08:00 100 12/09/19 07:35 98.6 F 12/09/19 07:30 100 12/09/19 03:59 97.5 F L 12/09/19 01:15 100 Weight Admit Weight 219 lb 9.6 oz Weight 219 lb 9.6 oz Most Recent Monitor Data Heart Rate from ECG 50 NIBP 138/89 NIBP BP-Mean 105 Respiration from ECG 21 SpO2 98 I&O: 12/08/19 12/09/19 12/10/19 06:59 06:59 06:59 Intake Total 1120 930 Output Total 825 Balance 1120 105 Result Diagrams: 12/09/19 00:48 12/09/19 00:47 Additional Labs: Accuchecks 12/09/19 12/09/19 12/09/19 10:35 07:33 00:33 POC Glucose 136 H 141 H 123 H 12/08/19 12/08/19 20:46 16:37 POC Glucose 117 H 151 H Hospitalist ROS - Medication Medications: Active Medications Generic Name Dose Route Start Last Admin Trade Name Freq PRN Reason Stop Dose Admin Acetaminophen 1,000 mg 12/08/19 13:28 12/09/19 00:10 Acetaminophen 500 Mg Tab PO 1,000 mg Q6H PRN Administration Headache/Fever or Pain Aspirin 81 mg 12/09/19 09:00 12/09/19 10:39 Aspirin 81 Mg Enteric Coated Tablet PO 81 mg DAILY NIYA Administration Aspirin 300 mg 12/09/19 09:00 12/09/19 10:35 Aspirin 300 Mg Suppository SC Not Given DAILY NIYA Atorvastatin Calcium 40 mg 12/08/19 21:00 12/08/19 21:30 Atorvastatin Calcium 40 Mg Tab PO 40 mg HS NIYA Administration Sodium Chloride 10 ml 12/08/19 21:00 12/09/19 10:53 Flush - Normal Saline 10 Ml Syringe IVF 10 ml Q12HR NIYA Administration - Exam General Appearance: awake alert Eye: PERRL, anicteric sclera ENT: no oropharyngeal lesions, moist mucosa Neck: supple, no JVD Heart: RRR, no murmur Respiratory: no wheezes, no rales Gastrointestinal: soft, non-tender, non-distended, normal bowel sounds Extremities: no cyanosis, no edema Neurological: cranial nerve grossly intact Neurological - other findings: chronic left hemiparesis Hosp A/P (1) Hemiparesis and other late effects of cerebrovascular accident Code(s): I69.359 - HEMIPLGA FOLLOWING CEREBRAL INFARCTION AFFECTING UNSP SIDE; I69.398 - OTHER SEQUELAE OF CEREBRAL INFARCTION Status: Chronic (2) TIA (transient ischemic attack) Code(s): G45.9 - TRANSIENT CEREBRAL ISCHEMIC ATTACK, UNSPECIFIED Status: Resolved (3) DM type 2 (diabetes mellitus, type 2) Status: Chronic Qualifiers: Diabetes mellitus ware cleaner insulin use: without ware cleaner use (4) Depression Code(s): F32.9 - MAJOR DEPRESSIVE DISORDER, SINGLE EPISODE, UNSPECIFIED Stat us: Chronic Qualifiers: Depression Type: major depressive disorder (5) Dyslipidemia Code(s): E78.5 - HYPERLIPIDEMIA, UNSPECIFIED Status: Chronic (6) Suicidal ideation Code(s): R45.851 - SUICIDAL IDEATIONS Status: Suspected (7) Symptomatic bradycardia Code(s): R00.1 - BRADYCARDIA, UNSPECIFIED Status: Acute - Plan MRI shows no ac cva, clinically has around 3/5 strength over left side which is chronic from prior cva d/w speech therapist, has dysphagia and is at risk but patient prefers to be on pureed diet with asp risk on asp, lipitor, humalog coverage apparently patient had suicidal ideation and intent to kill himself with a gun at home per staff, has 1:1 sitter on watch. to ambulate as tolerated had episodes of bradycardia with 2 sec pauses on telemetry monitoring, pcm in am d/w gave complete updates to and patient at bedside [facility] getachew once pcm is done and stable for dc plan
--- NOTE | 2019-12-09 13:01 | PDOC.NEUPN ---
- Subjective Encounter Date: 12/09/19 Subjective: Patient denies any new complaints. He completed a modified barium swallow study today. EEG and MRI brain negative. - Objective Vital Signs & Weight: Vital Signs (12 hours) Temp Pulse Ox 12/09/19 11:00 97.5 F L 12/09/19 08:00 100 12/09/19 07:35 98.6 F 12/09/19 07:30 100 12/09/19 03:59 97.5 F L 12/09/19 01:15 100 Weight Admit Weight 219 lb 9.6 oz Weight 219 lb 9.6 oz Most Recent Monitor Data Heart Rate from ECG 50 NIBP 138/89 NIBP BP-Mean 105 Respiration from ECG 21 SpO2 98 I&O: 12/08/19 12/09/19 12/10/19 06:59 06:59 06:59 Intake Total 1120 930 Output Total 825 Balance 1120 105 Result Diagrams: 12/09/19 00:48 12/09/19 00:47 Additional Labs: Accuchecks 12/09/19 12/09/19 12/09/19 10:35 07:33 00:33 POC Glucose 136 H 141 H 123 H 12/08/19 12/08/19 20:46 16:37 POC Glucose 117 H 151 H Radiology Reviewed by me: Yes EKG Reviewed by me: Yes ROS - Review of Systems Constitutional: denies: fever, chills, sweats, weakness, malaise, other Eyes: denies: pain, vision change, conjunctivae inflammation, eyelid inflammation, redness, other ENT: denies: ear pain, ear discharge, nose pain, nose discharge, nose congestion, mouth pain, mouth swelling, throat pain, throat swelling, other Respiratory: denies: cough, dry, shortness of breath, hemoptysis, SOB with excertion, pleuritic pain, sputum, wheezing, other Cardiovascular: reports: Syncope, Hyperlipidemia Gastrointestinal: denies: nausea, vomiting, abdominal pain, diarrhea, constipation, melena, hematochezia, other Genitourinary: denies: dysuria, frequency, incontinence, hematuria, retention, other Musculoskeletal: denies: neck pain, shoulder pain, arm pain, back pain, hand pain, leg pain, foot pain, other Skin: denies: rash, lesions, hang, bruising, other Neurological: reports: weakness, numbness, change in speech. denies: incoordination, confusion, seizures, other - Medication Medications: Active Medications Generic Name Dose Route Start Last Admin Trade Name Omar PRN Reason Stop Dose Admin Acetaminophen 1,000 mg 12/08/19 13:28 12/09/19 00:10 Acetaminophen 500 Mg Tab PO 1,000 mg Q6H PRN Administration Headache/Fever or Pain Aspirin 81 mg 12/09/19 09:00 12/09/19 10:39 Aspirin 81 Mg Enteric Coated Tablet PO 81 mg DAILY NIYA Administration Aspirin 300 mg 12/09/19 09:00 12/09/19 10:35 Aspirin 300 Mg Suppository WI Not Given DAILY NIYA Atorvastatin Calcium 40 mg 12/08/19 21:00 12/08/19 21:30 Atorvastatin Calcium 40 Mg Tab PO 40 mg HS NIYA Administration Sodium Chloride 10 ml 12/08/19 21:00 12/09/19 10:53 Flush - Normal Saline 10 Ml Syringe IVF 10 ml Q12HR NIYA Administration - Exam General Appearance: awake alert Eye: PERRL ENT: normocephalic atraumatic Neck: supple Respiratory: CTAB Cardiovascular: RRR Gastrointestinal: soft Extremities: no cyanosis Skin: normal turgor Neurological: no new deficit, facial droop, hemiplegia, speech deficit Musculoskeletal: no muscle wasting PSYCH: normal affect, normal behavior, A&O x 3 Results - Labs Result Diagrams: 12/09/19 00:48 12/09/19 00:47 Lab results: WBC 7.9 thou/uL (4.8-10.8) 12/09/19 00:48 Hgb 13.8 g/dL (14.0-18.0) L 12/09/19 00:48 Hct 40.5 % (42.0-52.0) L 12/09/19 00:48 MCV 86.6 fL (78.0-98.0) 12/09/19 00:48 Plt Count 322 thou/uL (130-400) 12/09/19 00:48 Neutrophils % 41.9 % (42.0-75.0) L 12/09/19 00:48 ABG pH 7.46 (7.35-7.45) H 12/09/19 00:45 ABG pCO2 33.2 mmHg (35.0-45.0) L 12/09/19 00:45 ABG pO2 96.8 mmHg (> 80.0) H 12/09/19 00:45 Sodium 137 mmol/L (136-145) 12/09/19 00:47 Potassium 3.9 mmol/L (3.5-5.1) 12/09/19 00:47 Chloride 104 mmol/L (98-107) 12/09/19 00:47 Carbon Dioxide 22 mmol/L (22-29) 12/09/19 00:47 BUN 10 mg/dL (8.4-25.7) 12/09/19 00:47 Creatinine 0.76 mg/dL (0.7-1.3) 12/09/19 00:47 Glucose 126 mg/dL (70-105) H 12/09/19 00:47 Lactic Acid 1.3 mmol/L (0.5-2.2) 12/09/19 00:48 Calcium 8.8 mg/dL (7.8-10.44) 12/09/19 00:47 Creatine Kinase 177 U/L (30-200) 12/09/19 00:47 CK-MB (CK-2) 5.8 ng/mL (0-6.6) 12/09/19 00:48 Troponin I Less than 0.010 ng/mL (< 0.028) 12/09/19 00:48 - Radiology Interpretation MRI - head Status: image reviewed by me, report reviewed by me Additional Comment: MRI brain reviewed and was negative for acute intracranial pathology. PN A/P (1) TIA (transient ischemic attack) Code(s): G45.9 - TRANSIENT CEREBRAL ISCHEMIC ATTACK, UNSPECIFIED Status: Resolved (2) Symptomatic bradycardia Code(s): R00.1 - BRADYCARDIA, UNSPECIFIED Status: Acute (3) Syncope Code(s): R55 - SYNCOPE AND COLLAPSE Status: Acute (4) Hemiparesis and other late effects of cerebrovascular accident Code(s): I69.359 - HEMIPLGA FOLLOWING CEREBRAL INFARCTION AFFECTING UNSP SIDE; I69.398 - OTHER SEQUELAE OF CEREBRAL INFARCTION Status: Chronic (5) Suicidal ideation Code(s): R45.851 - SUICIDAL IDEATIONS Status: Suspected (6) DM type 2 (diabetes mellitus, type 2) Status: Chronic Qualifiers: Diabetes mellitus terminal carman insulin use: without terminal carman use (7) Dementia Code(s): F03.90 - UNSPECIFIED DEMENTIA WITHOUT BEHAVIORAL DISTURBANCE Status: Chronic Qualifiers: Dementia type: unspecified type (8) Depression Code(s): F32.9 - MAJOR DEPRESSIVE DISORDER, SINGLE EPISODE, UNSPECIFIED Status: Chronic Qualifiers: Depression Type: major depressive disorder (9) Dyslipidemia Code(s): E78.5 - HYPERLIPIDEMIA, UNSPECIFIED Status: Chronic - Plan Daily Plan: PT/OT, speech therapy, DVT proph w/SCDs 59-year-old male with history significant for prior CVA with residual focal deficits presented with worsening of neurological symptoms. MRI of the brain did not reveal any acute intracranial process. Most likely TIA. MRI of the brain reviewed and was negative for acute intracranial process. EEG reviewed for ongoing memory issues and was negative for underlying cortical irritability or seizure activity. Carotid Dopplers did not reveal hemodynamically significant stenosis. Telemetry showed episodes of bradycardia cardiology on board Neurochecks every 4 hours Continue aspirin and high intensity statin for secondary stroke prevention PT/OT/speech. Modified barium barium swallow completed today with results pending. Speech on board Strict control of blood pressure and blood glucose. Continue home medications. Continue medical management per primary team. Plan discussed with the patient, and during the MDR rounds.
[2019-12-09] MEDS: Atorvastatin Calcium 40 MG TAB PO SCH (20:36)
[2019-12-09] MEDS: Tamsulosin HCl 0.4 MG CAP PO SCH (20:36)
--- NOTE | 2019-12-09 22:37 | EEG ---
DATE OF SERVICE: 12/09/2019 ATTENDING PHYSICIAN: Klarissa Mills MD REASON FOR EEG: Altered mental status. This EEG was performed using 24-channel [employer] video digital EEG machine with 24-disk electrodes. This was an extended 2 hours 5 minutes of inpatient video EEG recording. Digital analysis of the EEG was done for spike and seizure detection, which revealed no abnormalities. BACKGROUND: The posterior background rhythm is 9 to 10 hertz. The background rhythm attenuates with eye opening and enhances with eye closure. HYPERVENTILATION: Not performed. PHOTIC STIMULATION: Bioccipital symmetric driving response is observed. SLEEP: Drowsiness is observed. EEG DIAGNOSIS: Occasional irregular theta activity seen during the recording. CLINICAL INTERPRETATION: This EEG is consistent with mild generalized nonspecific cerebral dysfunction. Job ID: [id number]
[2019-12-10] MEDS ORDERED: Vancomycin HCl 500 MG VIAL ONE ×2 (07:14→07:21)
[2019-12-10] MEDS ORDERED: Lidocaine 1% (PF) 30 ML VIAL ONE (07:14)
[2019-12-10] MEDS ORDERED: diphenhydrAMINE 50 MG/ML VIAL ONE (07:16)
[2019-12-10] MEDS ORDERED: Midazolam HCl 2 mg/2 ml Vial ONE (08:08)
[2019-12-10] MEDS ORDERED: Iopamidol 370 76% 50 ML VIAL FS ONE (08:54)
[2019-12-10] MEDS ORDERED: DOPamine 400 MG/D5W 250 ML 250 ML ONE (08:57)
[2019-12-10] MEDS: Aspirin 81 mg Enteric Coated Tablet PO SCH (11:43)
[2019-12-10] MEDS: Tamsulosin HCl 0.4 MG CAP PO SCH ×2 (11:44→21:12)
[2019-12-10] MEDS: Morphine 2 MG/ML VIAL SLOW IVP PRN ×3 (11:44→21:11)
--- NOTE | 2019-12-10 14:17 | PDOC.NEUPN ---
- Subjective Encounter Date: 12/10/19 Subjective: Patient feels better today and follow commands appropriately. - Objective Vital Signs & Weight: Vital Signs (12 hours) Temp Pulse Ox 12/10/19 11:10 98.0 F 12/10/19 09:25 97.7 F 12/10/19 07:31 98 12/10/19 03:00 97.8 F Weight Admit Weight 219 lb 9.6 oz Weight 219 lb 9.6 oz Most Recent Monitor Data Heart Rate from ECG 60 NIBP 104/66 NIBP BP-Mean 78 Respiration from ECG 22 SpO2 97 I&O: 12/09/19 12/10/19 12/11/19 06:59 06:59 06:59 Intake Total 930 1010 Output Total 825 Balance 105 1010 Result Diagrams: 12/09/19 00:48 12/09/19 00:47 Additional Labs: Accuchecks 12/10/19 12/10/19 12/09/19 11:47 05:49 20:31 POC Glucose 141 H 161 H 140 H 12/09/19 16:58 POC Glucose 182 H Radiology Reviewed by me: Yes EKG Reviewed by me: Yes ROS - Review of Systems Constitutional: denies: fever, chills, sweats, weakness, malaise, other Eyes: denies: pain, vision change, conjunctivae inflammation, eyelid inflammation, redness, other ENT: denies: ear pain, ear discharge, nose pain, nose discharge, nose congestion, mouth pain, mouth swelling, throat pain, throat swelling, other Respiratory: denies: cough, dry, shortness of breath, hemoptysis, SOB with excertion, pleuritic pain, sputum, wheezing, other Gastrointestinal: denies: nausea, vomiting, abdominal pain, diarrhea, constipation, melena, hematochezia, other Genitourinary: denies: dysuria, frequency, incontinence, hematuria, retention, other Musculoskeletal: denies: neck pain, shoulder pain, arm pain, back pain, hand pain, leg pain, foot pain, other Neurological: reports: weakness, numbness, incoordination, change in speech. denies: confusion, seizures, other - Medication Medications: Active Medications Generic Name Dose Route Start Last Admin Trade Name Freq PRN Reason Stop Dose Admin Acetaminophen 1,000 mg 12/08/19 13:28 12/09/19 00:10 Acetaminophen 500 Mg Tab PO 1,000 mg Q6H PRN Administration Headache/Fever or Pain Aspirin 81 mg 12/09/19 09:00 12/10/19 11:43 Aspirin 81 Mg Enteric Coated Tablet PO Not Given DAILY NIYA Atorvastatin Calcium 40 mg 12/08/19 21:00 12/09/19 20:36 Atorvastatin Calcium 40 Mg Tab PO 40 mg HS NIYA Administration Morphine Sulfate 2 mg 12/10/19 10:56 12/10/19 11:44 Morphine 2 Mg/Ml Vial SLOW IVP 2 mg Q4H PRN Administration Pain Sodium Chloride 10 ml 12/08/19 21:00 12/10/19 11:43 Flush - Normal Saline 10 Ml Syringe IVF Not Given Q12HR NIYA Sodium Chloride 10 ml 12/09/19 21:00 12/10/19 11:44 Flush - Normal Saline 10 Ml Syringe IVF 10 ml Q12HR NIYA Administration Tamsulosin HCl 0.4 mg 12/09/19 21:00 12/10/19 11:44 Tamsulosin Hcl 0.4 Mg Cap PO Not Given BID NIYA - Exam General Appearance: awake alert Eye: PERRL ENT: normocephalic atraumatic Neck: supple Respiratory: CTAB Cardiovascular: RRR Gastrointestinal: soft Extremities: no cyanosis Skin: normal turgor Neurological: facial droop, hemiplegia, speech deficit Musculoskeletal: no muscle wasting PSYCH: normal affect, normal behavior, oriented to person, oriented to place Results - Labs Result Diagrams: 12/09/19 00:48 12/09/19 00:47 Lab results: WBC 7.9 thou/uL (4.8-10.8) 12/09/19 00:48 Hgb 13.8 g/dL (14.0-18.0) L 12/09/19 00:48 Hct 40.5 % (42.0-52.0) L 12/09/19 00:48 MCV 86.6 fL (78.0-98.0) 12/09/19 00:48 Plt Count 322 thou/uL (130-400) 12/09/19 00:48 Neutrophils % 41.9 % (42.0-75.0) L 12/09/19 00:48 ABG pH 7.46 (7.35-7.45) H 12/09/19 00:45 ABG pCO2 33.2 mmHg (35.0-45.0) L 12/09/19 00:45 ABG pO2 96.8 mmHg (> 80.0) H 12/09/19 00:45 Sodium 137 mmol/L (136-145) 12/09/19 00:47 Potassium 3.9 mmol/L (3.5-5.1) 12/09/19 00:47 Chloride 104 mmol/L (98-107) 12/09/19 00:47 Carbon Dioxide 22 mmol/L (22-29) 12/09/19 00:47 BUN 10 mg/dL (8.4-25.7) 12/09/19 00:47 Creatinine 0.76 mg/dL (0.7-1.3) 12/09/19 00:47 Glucose 126 mg/dL (70-105) H 12/09/19 00:47 Lactic Acid 1.3 mmol/L (0.5-2.2) 12/09/19 00:48 Calcium 8.8 mg/dL (7.8-10.44) 12/09/19 00:47 Creatine Kinase 177 U/L (30-200) 12/09/19 00:47 CK-MB (CK-2) 5.8 ng/mL (0-6.6) 12/09/19 00:48 Troponin I Less than 0.010 ng/mL (< 0.028) 12/09/19 00:48 - Radiology Interpretation MRI - head Status: image reviewed by me, report reviewed by me Additional Comment: MRI of the brain reviewed and was negative for acute intracranial pathology. PN A/P (1) TIA (transient ischemic attack) Code(s): G45.9 - TRANSIENT CEREBRAL ISCHEMIC ATTACK, UNSPECIFIED Status: Resolved (2) Symptomatic bradycardia Code(s): R00.1 - BRADYCARDIA, UNSPECIFIED Status: Acute (3) Syncope Code(s): R55 - SYNCOPE AND COLLAPSE Status: Acute (4) Hemiparesis and other late effects of cerebrovascular accident Code(s): I69.359 - HEMIPLGA FOLLOWING CEREBRAL INFARCTION AFFECTING UNSP SIDE; I69.398 - OTHER SEQUELAE OF CEREBRAL INFARCTION Status: Chronic (5) Suicidal ideation Code(s): R45.851 - SUICIDAL IDEATIONS Status: Suspected (6) DM type 2 (diabetes mellitus, type 2) Status: Chronic Qualifiers: Diabetes mellitus prison insulin use: without prison use (7) Dementia Code(s): F03.90 - UNSPECIFIED DEMENTIA WITHOUT BEHAVIORAL DISTURBANCE Status: Chronic Qualifiers: Dementia type: unspecified type (8) Depression Code(s): F32.9 - MAJOR DEPRESSIVE DISORDER, SINGLE EPISODE, UNSPECIFIED Status: Chronic Qualifiers: Depression Type: major depressive disorder (9) Dyslipidemia Code(s): E78.5 - HYPERLIPIDEMIA, UNSPECIFIED Status: Chronic - Plan Daily Plan: PT/OT, speech therapy, DVT proph w/lovenox 59-year-old male with history significant for prior CVA with residual focal deficits presented with worsening of neurological symptoms. MRI of the brain did not reveal any acute intracranial process. MRI of the brain reviewed and was negative for acute intracranial process. EEG reviewed for ongoing memory issues and was negative for underlying cortical irritability or seizure activity. Carotid Dopplers did not reveal hemodynamically significant stenosis. Telemetry showed episodes of bradycardia cardiology on board Neurochecks every 4 hours Continue aspirin and high intensity statin for secondary stroke prevention PT/OT/speech. Modified barium barium swallow completed. Patient tolerating diet. Speech is on board. Strict control of blood pressure and blood glucose. Continue home medications. Continue medical management per primary team. Plan discussed with the patient
--- NOTE | 2019-12-10 16:08 | PQF ---
CLINICAL DOCUMENTATION CLARIFICATION FORM: Dear Dr. DYLAN MELLO Date: 12-10-19 Please exercise your independent, professional judgment in responding to the clarification form. Clinical indicators are provided on the bottom of this form for your review. Please check appropriate box(es): [ ] Encephalopathy: Type: [ ] Acute [ ] Subacute [ ] Chronic Etiology: [ ] Hypertensive [ ] Metabolic [ ] Toxic [ ] In the setting of underlying dementia [ ] Unspecified [ ] Other (please specify) [ ] Transient Alteration of Awareness [ ] Other diagnosis [ ] Unable to determine In addition, please specify: Present on Admission (POA): [ ] Yes [ ] No [ ] Unable to determine For continuity of documentation, please document condition throughout progress notes and discharge summary. Thank You. To be completed by CDI/Coding staff for physician review: CLINICAL INDICATORS - SIGNS / SYMPTOMS / LABS / RESULTS AND LOCATION IN EMR: H&P 12-08-19: EPISODES OF ALTERED MENTATION, DURING WHICH HE IS EXTREMELY CONFUSED AND AT TIMES THERE HAS BEEN SITUATION WHERE HE DOES NOT RECOGNIZE HIS OR FAMILY MEMBERS EVENT NOTE VIOLETTE GARCIA 12-09-19: WANG CLAIRE CALLED FOR ALTERED MENTAL STATUS, PT ALERT AND TALKING WITH STAFF, THEN UNRESPONSIVE TO VERBAL STIMULI. UNABLE TO FOLLOW COMMANDS. PT TRANSFERRED TO IMCU FOR CLOSER MONITORING. NEUROLOGY ON CASE WITH EEG ORDERED. RISK FACTORS / RESULTS AND LOCATION IN EMR: H&P: 12-07-19: HX CVA WITH RESIDUAL L SIDED DEFICITS, ALZHEIMERS DEMENTIA, DM, BPH, DDD, DEPRESSION TREATMENTS / RESULTS AND LOCATION IN EMR: CT OF BRAIN 12-09-19 EVENT NOTE VIOLETTE GARCIA 12-09-19: WANG CLAIRE CALLED FOR ALTERED MENTAL STATUS, TRANSFERRED TO IMCU FOR CLOSER MONITORING. NEUROLOGY ON CASE WITH EEG ORDERED. CDS Signature: Heydi Valle Phone #: [phone] Date/Time: 12-10-19 This is a permanent part of the Medical Record [facility]
--- NOTE | 2019-12-10 17:22 | RAD ---
CHEST 1 VIEW: INDICATION: History of post cardiac device placement. COMPARISON: Prior exam dated 12/07/2019. FINDINGS: There has been interval placement of a dual-lead pacemaker overlying the left chest wall. The leads appear intact. Generator appears intact. The visualized lungs are clear. Mild cardiomegaly is stab le. No pneumothorax is grossly evident. IMPRESSION: Status post dual-lead cardiac pacemaker placement. No pneumothorax demonstrated. Stable cardiomegal y. POS: BH
--- NOTE | 2019-12-10 17:31 | PDOC.HOSPP ---
- Subjective Encounter Date: 12/10/19 Encounter Time: 12:00 Subjective: Pt seen for followup re: symptomatic bradycardia. Complains of pain at pacemaker site. - Objective Vital Signs & Weight: Vital Signs (12 hours) Temp Pulse Pulse BP BP Pulse Ox Pulse Ox 12/10/19 13:20 86 63 104/66 117/74 100 12/10/19 11:10 98.0 F 12/10/19 09:25 97.7 F 12/10/19 07:31 98 Pulse Ox 12/10/19 13:20 99 12/10/19 11:10 12/10/19 09:25 12/10/19 07:31 Weight Admit Weight 219 lb 9.6 oz Weight 219 lb 9.6 oz Most Recent Monitor Data Heart Rate from ECG 60 NIBP 123/76 NIBP BP-Mean 91 Respiration from ECG 31 SpO2 98 I&O: 12/09/19 12/10/19 12/11/19 06:59 06:59 06:59 Intake Total 930 1010 Output Total 825 Balance 105 1010 Result Diagrams: 12/09/19 00:48 12/09/19 00:47 Additional Labs: Accuchecks 12/10/19 12/10/19 12/10/19 16:22 11:47 05:49 POC Glucose 110 H 141 H 161 H 12/09/19 20:31 POC Glucose 140 H I reviewed patient's labs and MAR Hospitalist ROS - Review of Systems Cardiovascular: reports: chest pain. denies: palpitations, orthopnea, paroxysmal noc. dyspnea, edema, light headedness Gastrointestinal: denies: nausea, vomiting, abdominal pain, diarrhea, constipation, melena, hematochezia - Medication Medications: Active Medications Generic Name Dose Route Start Last Admin Trade Name Freq PRN Reason Stop Dose Admin Acetaminophen 1,000 mg 12/08/19 13:28 12/09/19 00:10 Acetaminophen 500 Mg Tab PO 1,000 mg Q6H PRN Administration Headache/Fever or Pain Aspirin 81 mg 12/09/19 09:00 12/10/19 11:43 Aspirin 81 Mg Enteric Coated Tablet PO Not Given DAILY NIYA Atorvastatin Calcium 40 mg 12/08/19 21:00 12/09/19 20:36 Atorvastatin Calcium 40 Mg Tab PO 40 mg HS NIYA Administration Morphine Sulfate 2 mg 12/10/19 10:56 12/10/19 16:05 Morphine 2 Mg/Ml Vial SLOW IVP 2 mg Q4H PRN Administration Pain Sodium Chloride 10 ml 12/08/19 21:00 12/10/19 11:43 Flush - Normal Saline 10 Ml Syringe IVF Not Given Q12HR NIAY Sodium Chloride 10 ml 12/09/19 21:00 12/10/19 11:44 Flush - Normal Saline 10 Ml Syringe IVF 10 ml Q12HR NIYA Administration Tamsulosin HCl 0.4 mg 12/09/19 21:00 12/10/19 11:44 Tamsulosin Hcl 0.4 Mg Cap PO Not Given BID NIYA - Exam General Appearance: awake alert Eye: anicteric sclera ENT: moist mucosa Neck: supple Heart: RRR Respiratory: CTAB Gastrointestinal: soft, non-tender Skin - other findings: Pacemaker site clean Musculoskeletal: no muscle wasting Psychiatric: normal affect, normal behavior Hosp A/P - Plan -Assessment (1) symptomatic bradycardia Status: Acute (2) Dyslipidemia Code(s): E78.5 - HYPERLIPIDEMIA, UNSPECIFIED Status: Chronic (3) DM type 2 (diabetes mellitus, type 2) Status: Chronic Qualifiers: Diabetes mellitus penitentiary insulin use: without penitentiary use (4) Depression Code(s): F32.9 - MAJOR DEPRESSIVE DISORDER, SINGLE EPISODE, UNSPECIFIED Status: Chronic Qualifiers: Depression Type: major depressive disorder (5) Hemiparesis and other late effects of cerebrovascular accident Code(s): I69.359 - HEMIPLGA FOLLOWING CEREBRAL INFARCTION AFFECTING UNSP SIDE; I69.398 - OTHER SEQUELAE OF CEREBRAL INFARCTION Status: Chronic (6) Suicidal ideation Code(s): R45.851 - SUICIDAL IDEATIONS Status: Suspected (7) TIA (transient ischemic attack) Code(s): G45.9 - TRANSIENT CEREBRAL ISCHEMIC ATTACK, UNSPECIFIED Status: Resolved - Plan Status post permanent pacemaker today. Continue aspirin lipitor, humalog insulin sliding scale. apparently patient had suicidal ideation and intent to kill himself with a gun at home per staff, has 1:1 sitter on watch. He will need [facility] eval prior to discharge. to ambulate as tolerated PRN morphine for pain.
[2019-12-10] MEDS: Atorvastatin Calcium 40 MG TAB PO SCH (21:12)
[2019-12-11] MEDS: traMADol HCl 50 MG TAB PO PRN ×4 (00:35→23:22)
[2019-12-11 08:13] LABS: #Eosinphils 0.1 thou/uL (0.0-0.7); #Monocytes 0.6 thou/uL (0.11-0.59); #Neutrophils 4.6 thou/uL (1.40-6.50); %Basophils 0.5 % (0.0-1.0); %Eosinophils 1.8 % (0.0-10.0); %Lymphocytes 27.6 % (21.0-51.0); %Monocytes 7.7 % (0.0-10.0); %Neutrophils 62.4 % (42.0-75.0); Hemoglobin 14.1 g/dL (14.0-18.0); Mean Corpuscular HGB CONC 33.4 g/dL (32.0-36.0); Mean Corpuscular Hemoglobin 29.2 pg (27.0-31.0); Mean Corpuscular Volume 87.4 fL (78.0-98.0); Mean Platelet Volume 6.6 fL (7.4-10.4); Platelet Count 298 thou/uL (130-400); Red Blood Cell (RBC) Count 4.84 mill/uL (4.70-6.10); White Blood Cell (WBC) Count 7.4 thou/uL (4.8-10.8)
[2019-12-11 08:33] LABS: Anion Gap 13 mmol/L (10-20); BUN (Urea Nitrogen) 16 mg/dL (8.4-25.7); Calc. Creatinine Clearance 140 mL/min (70-130); Calcium 8.9 mg/dL (7.8-10.44); Carbon Dioxide 22 mmol/L (22-29); Chloride 105 mmol/L (98-107); Estimated GFR-MDRD Greater than 90; Glucose 187 mg/dL (70-105); Sodium 136 mmol/L (136-145)
[2019-12-11] MEDS: Tamsulosin HCl 0.4 MG CAP PO SCH ×2 (08:44→20:31)
[2019-12-11] MEDS ORDERED: Sodium Chloride 0.9% 500 ML IV SCH (09:00)
--- NOTE | 2019-12-11 09:35 | PRG ---
DATE OF SERVICE: SUBJECTIVE: Mr. Goel is feeling better today. He does feel somewhat weak, but otherwise he says he feels well. He has some mild discomfort at the pacemaker site. OBJECTIVE: VITAL SIGNS: Blood pressure is on the low side 94 systolic, pulse is in the 60 range. LUNGS: Clear. CARDIAC: Normal S1, normal S2. ASSESSMENT: 1. Status post pacemaker insertion. 2. Relatively low blood pressure. PLAN: 1. Dr. Santana ordered an echocardiogram yesterday. We will review that. 2. We will give normal saline 500 mL bolus. 3. May need to repeat the echocardiogram depending on blood pressure. Job ID: [id number]
[2019-12-11 10:33] LABS: Bacteria/HPF None Seen HPF (None Seen); Bilirubin Negative (Negative); Blood, Urine Negative (Negative); Clarity Clear (Clear); Glucose, Urine (Dipstick) 50 mg/dL (Negative); Ketone, Urine 10 mg/dL (Negative); Leukocyte 250 Leu/uL (Negative); Nitrite Negative (Negative); Protein, Urine (Dipstick) 20 mg/dL (Neg-Trace); RBC/HPF 0-3 HPF (0-3); Specific Gravity, Urine 1.031 (1.002-1.036); Squamous Epithelial None Seen HPF (0-3); Urobilinogen 3 mg/dL (Less than 2); WBC/HPF 21-50 HPF (0-3)
[2019-12-11 10:39] LABS: Urine Culture Reflex Yes Yes
[2019-12-11] MEDS: HumaLOG 300 UNITS/3 ML VIAL SC PRN (12:31)
--- NOTE | 2019-12-11 12:38 | PDOC.HOSPP ---
- Subjective Encounter Date: 12/11/19 Encounter Time: 07:20 Subjective: Seen for follow-up regarding bradycardia. More alert and awake, denies any complaints. - Objective Vital Signs & Weight: Vital Signs (12 hours) Temp Pulse Pulse Pulse Resp BP BP 12/11/19 11:00 97.7 F 60 16 12/11/19 09:30 61 63 113/66 122/59 L 12/11/19 07:52 97.6 F 72 24 H 12/11/19 04:00 97.7 F 60 12 BP Pulse Ox 12/11/19 11:00 104/62 96 12/11/19 09:30 12/11/19 07:52 95/56 L 96 12/11/19 04:00 109/55 L 97 Weight Admit Weight 219 lb 9.6 oz Weight 219 lb 9.6 oz Most Recent Monitor Data Heart Rate from ECG 60 NIBP 123/68 NIBP BP-Mean 86 Respiration from ECG 20 SpO2 96 I&O: 12/10/19 12/11/19 12/12/19 06:59 06:59 06:59 Intake Total 1010 540 Balance 1010 540 Result Diagrams: 12/11/19 08:03 12/11/19 08:03 Additional Labs: Accuchecks 12/11/19 12/11/19 12/10/19 10:47 06:29 23:32 POC Glucose 189 H 128 H 140 H 12/10/19 16:22 POC Glucose 110 H I reviewed patient's labs and MAR EKG Reviewed by me: Yes (Telemetry: A paced rhythm) Hospitalist ROS - Review of Systems Cardiovascular: denies: chest pain, palpitations, orthopnea, paroxysmal noc. dyspnea, edema, light headedness Gastrointestinal: denies: nausea, vomiting, abdominal pain, diarrhea, constipation, melena, hematochezia - Medication Medications: Active Medications Generic Name Dose Route Start Last Admin Trade Name Freq PRN Reason Stop Dose Admin Acetaminophen 1,000 mg 12/08/19 13:28 12/09/19 00:10 Acetaminophen 500 Mg Tab PO 1,000 mg Q6H PRN Administration Headache/Fever or Pain Atorvastatin Calcium 40 mg 12/08/19 21:00 12/10/19 21:12 Atorvastatin Calcium 40 Mg Tab PO 40 mg HS NIYA Administration Insulin Human Lispro 0 units 12/07/19 23:47 12/11/19 12:31 Humalog 300 Units/3 Ml Vial SC 2 unit .MILD SLIDING SCALE PRN Administration Mild Correctional Scale Morphine Sulfate 2 mg 12/10/19 10:56 12/10/19 21:11 Morphine 2 Mg/Ml Vial SLOW IVP 2 mg Q4H PRN Administration Pain Sodium Chloride 10 ml 12/09/19 21:00 12/11/19 08:44 Flush - Normal Saline 10 Ml Syringe IVF Not Given Q12HR NIYA Tamsulosin HCl 0.4 mg 12/09/19 21:00 12/11/19 08:44 Tamsulosin Hcl 0.4 Mg Cap PO 0.4 mg BID NIYA Administration Tramadol HCl 50 mg 12/10/19 23:44 12/11/19 08:40 Tramadol Hcl 50 Mg Tab PO 50 mg Q6H PRN Administration Severe Pain (7-10) - Exam General Appearance: awake alert Eye: anicteric sclera ENT: moist mucosa Neck: supple Heart: RRR Respiratory: CTAB Gastrointestinal: soft, non-tender Extremities: no cyanosis Skin: no rashes Psychiatric: normal affect, normal behavior Hosp A/P - Plan -Assessment (1) symptomatic bradycardia Status: Acute (2) Dyslipidemia Code(s): E78.5 - HYPERLIPIDEMIA, UNSPECIFIED Status: Chronic (3) DM type 2 (diabetes mellitus, type 2) Status: Chronic Qualifiers: Diabetes mellitus fdc insulin use: without fibreglass laminator use (4) Depression Code(s): F32.9 - MAJOR DEPRESSIVE DISORDER, SINGLE EPISODE, UNSPECIFIED Status: Chronic Qualifiers: Depression Type: major depressive disorder (5) Hemiparesis and other late effects of cerebrovascular accident Code(s): I69.359 - HEMIPLGA FOLLOWING CEREBRAL INFARCTION AFFECTING UNSP SIDE; I69.398 - OTHER SEQUELAE OF CEREBRAL INFARCTION Status: Chronic (6) Suicidal ideation Code(s): R45.851 - SUICIDAL IDEATIONS Status: Suspected (7) TIA (transient ischemic attack) Code(s): G45.9 - TRANSIENT CEREBRAL ISCHEMIC ATTACK, UNSPECIFIED Status: Reso lved (8) acute metabolic encephalopathy Status: Resolved, not present on admission - Plan Patient had permanent pacemaker placed. I will continue him on aspirin, lipitor, humalog insulin sliding scale. Ambulate patient. [facility] evjonas prior to discharge.
[2019-12-11] MEDS: Atorvastatin Calcium 40 MG TAB PO SCH (20:31)
--- NOTE | 2019-12-11 22:08 | CCLSPC ---
INDICATION FOR PROCEDURE: A 59-year-old patient with symptomatic bradycardia, who was advised to undergo dual chamber pacemaker insertion. PROCEDURE IN DETAIL: He was taken to the cardiac labor relations or personnel negotiator where he was prepped and draped in sterile fashion. Using sterile technique, the dual chamber pacemaker from [employer] was implanted. This was an MRI compatible device, an Deepa XT dual chamber pacemaker with 2 screw-in leads, one in the atrium and one in the ventricle. There were no significant complications or difficulties encountered during the procedure. He did have some hypotension during the procedure, but responded well to IV fluids. There was a suspicion originally that the patient may have had a tamponade, but did not appear to be so. The pressure recovered nicely after some IV fluids. The pacemaker was set with the upper rate of 120, the lower rate was set at 60. Job ID: [id number]
[2019-12-12 05:18] LABS: #Eosinphils 0.2 thou/uL (0.0-0.7); #Monocytes 0.7 thou/uL (0.11-0.59); #Neutrophils 3.8 thou/uL (1.40-6.50); %Basophils 0.6 % (0.0-1.0); %Eosinophils 2.9 % (0.0-10.0); %Lymphocytes 38.8 % (21.0-51.0); %Monocytes 8.6 % (0.0-10.0); %Neutrophils 49.2 % (42.0-75.0); Hemoglobin 13.3 g/dL (14.0-18.0); Mean Corpuscular HGB CONC 33.1 g/dL (32.0-36.0); Mean Corpuscular Hemoglobin 28.9 pg (27.0-31.0); Mean Corpuscular Volume 87.3 fL (78.0-98.0); Mean Platelet Volume 6.8 fL (7.4-10.4); Platelet Count 304 thou/uL (130-400); RBC Distribution Width 12.1 % (11.5-14.5); Red Blood Cell (RBC) Count 4.59 mill/uL (4.70-6.10); White Blood Cell (WBC) Count 7.8 thou/uL (4.8-10.8)
[2019-12-12 05:37] LABS: Anion Gap 11 mmol/L (10-20); BUN (Urea Nitrogen) 16 mg/dL (8.4-25.7); Calc. Creatinine Clearance 152 mL/min (70-130); Calcium 8.6 mg/dL (7.8-10.44); Carbon Dioxide 24 mmol/L (22-29); Chloride 101 mmol/L (98-107); Estimated GFR-MDRD Greater than 90; Glucose 121 mg/dL (70-105); Potassium 3.8 mmol/L (3.5-5.1); Sodium 132 mmol/L (136-145)
[2019-12-12] MEDS: Tamsulosin HCl 0.4 MG CAP PO SCH (09:15)
[2019-12-12] MEDS ORDERED: Aspirin 81 mg Enteric Coated Tablet PO SCH (13:15)
--- NOTE | 2019-12-12 13:36 | PDOC.CPN ---
- Subjective Date: 12/12/19 Time: 12:30 Interval history: Patient wants to go home. No overnight events. - Review of Systems General: denies: fever/chills, weight/appetite/sleep changes, night sweats, fatigue Respiratory: denies: cough, congestion, shortness of breath, exercise intolerance Cardiovascular: denies: chest pain, palpitation, edema, paroxysmal nocturnal dyspnea, orthopnea Gastrointestinal: denies: nausea, vomiting, diarrhea, constipation, abd pain, GI bleeding Musculoskeletal: denies: pain, tenderness, stiffness, swelling, arthritis/arthra lgias Neurological: denies: numbness, syncope, seizure, weakness - Objective Allergies/Adverse Reactions: Allergies Allergy/AdvReac Type Severity Reaction Status Date / Time clindamycin Allergy Verified 12/07/19 20:50 diphenhydramine Allergy Verified 12/07/19 20:50 hydrocodone Allergy Verified 12/07/19 20:50 mupirocin [From Bactroban] Allergy Verified 12/07/19 20:50 Penicillins Allergy Hives Verified 12/07/19 20:50 Sulfa (Sulfonamide Allergy Hives Verified 12/07/19 20:50 Antibiotics) vancomycin Allergy Verified 12/07/19 20:50 Visit Medications: Current Medications Acetaminophen (Acetaminophen 500 Mg Tab) 500 mg PO Q4H PRN PRN Reason: Headache/Fever or Pain Acetaminophen (Acetaminophen 500 Mg Tab) 1,000 mg PO Q6H PRN PRN Reason: Headache/Fever or Pain Last Admin: 12/09/19 00:10 Dose: 1,000 mg Documented by: Aspirin (Aspirin 81 Mg Enteric Coated Tablet) 81 mg PO DAILY [facility] Aspirin (Aspirin 81 Mg Enteric Coated Tablet) 81 mg PO NOW [facility] Stop: 12/12/19 15:15 Atorvastatin Calcium (Atorvastatin Calcium 40 Mg Tab) 40 mg PO [facility] Last Admin: 12/11/19 20:31 Dose: 40 mg Documented by: Dextrose/Water (Dextrose 50% Abboject 50 Ml Syringe) 25 gm SLOW IVP PRN PRN PRN Reason: Hypoglycemia Glucagon (Glucagon 1 Mg/Ml Vial) 1 mg IM PRN PRN PRN Reason: Hypoglycemia Dextrose/Water (D5w) 1,000 mls @ 0 mls/hr IV .Q0M PRN PRN Reason: Hypoglycemia Insulin Human Lispro (Humalog 300 Units/3 Ml Vial) 0 units SC .MILD SLIDING SCALE PRN PRN Reason: Mild Correctional Scale Last Admin: 12/11/19 12:31 Dose: 2 unit Documented by: Insulin Human Lispro (Humalog 300 Units/3 Ml Vial) 0 units SC .BEDTIME SLIDING SC PRN PRN Reason: Bedtime Correctional Scale Morphine Sulfate (Morphine 2 Mg/Ml Vial) 2 mg SLOW IVP Q4H PRN PRN Reason: Pain Last Admin: 12/10/19 21:11 Dose: 2 mg Documented by: Sodium Chloride (Flush - Normal Saline 10 Ml Syringe) 10 ml IVF Q12HR NIYA Last Admin: 12/12/19 09:17 Dose: 10 ml Documented by: Sodium Chloride (Flush - Normal Saline 10 Ml Syringe) 10 ml IVF PRN PRN PRN Reason: Saline Flush Tamsulosin HCl (Tamsulosin Hcl 0.4 Mg Cap) 0.4 mg PO BID [facility] Last Admin: 12/12/19 09:15 Dose: 0.4 mg Documented by: Tramadol HCl (Tramadol Hcl 50 Mg Tab) 50 mg PO Q6H PRN PRN Reason: Severe Pain (7-10) Last Admin: 12/11/19 23:22 Dose: 50 mg Documented by: Vital Signs & Weight: Vital Signs Temp Pulse Resp BP Pulse Ox 12/12/19 11:27 97.5 F L 66 14 132/75 95 12/12/19 08:00 97.7 F 60 15 144/69 H 97 12/12/19 04:45 132/68 12/12/19 04:00 97.5 F L 81 13 98/55 L 98 Admit Weight 219 lb 9.6 oz Weight 219 lb 9.6 oz - Physical Exam General: alert & oriented x3, appears well HEENT: mucus membranes moist Neck: supple neck Cardiac: regular rate and rhythm Lungs: clear to auscultation Neuro: grossly intact Abdomen: soft, non-tender Extremities: no edema Skin: clear Musculoskeletal: no pain - Labs Result Diagrams: 12/12/19 04:42 12/12/19 04:42 Troponin/CKMB CK-MB (CK-2) 5.8 ng/mL (0-6.6) 12/09/19 00:48 Troponin I Less than 0.010 ng/mL (< 0.028) 12/09/19 00:48 - Assessment/Plan Assessment/Plan: 1. bradycardia 2. s/p pacemaker Stable. Pacer site without erythema, drainage. Minimal swelling. Cleared for discharge from my standpoint. Awaiting MHMR placement. 12/12/2019 RG-Pt seen and examined. Agree with the above assessment. Doing well. Fu in office in 2 weeks
[2019-12-12] MEDS: HumaLOG 300 UNITS/3 ML VIAL SC PRN (13:47)
[2019-12-12 15:47] VITALS: BP 146/78; TEMP 97.9
--- NOTE | 2019-12-12 20:30 | DIS ---
DATE OF ADMISSION: 12/08/2019 DATE OF DISCHARGE: 12/12/2019 PRIMARY CARE PROVIDER: Eric Connolly MD DISCHARGE DIAGNOSES: 1. Transient ischemic attack. 2. Symptomatic bradycardia. 3. Hyponatremia. 4. Suicidal ideation. 5. Medication noncompliance. 6. History of syncopal episodes. 7. Acute metabolic encephalopathy. CONDITION OF PATIENT ON THE DAY OF DISCHARGE: Stable. I assessed Mr. Goel on the day of discharge. He denies any chest pain or shortness of breath. Vital signs are stable. S1 and S2 are heard, regular. Lungs are clear to auscultation bilaterally. CONSULTATIONS DURING THIS HOSPITALIZATION: 1. Neurology, Dr. Mills. 2. Cardiology, Dr. Kelly. HOSPITAL COURSE: Mr. Goel is a pleasant 59-year-old gentleman who was admitted to [facility] on December 07, 2019 for transient ischemic attack in the context of medication noncompliance with underlying diagnosis of diabetes mellitus type 2 and tobacco use disorder. MRI of the brain did not show any evidence of acute findings. Carotid Dopplers did not show any evidence of hemodynamically significant stenosis of either internal carotid artery. He was seen by Neurology Service. He was started on aspirin and statin. On December 08, 2019, he was seen by Cardiology Service because he has a history of syncopal episodes and was found to be bradycardic. He also had an EEG which was consistent with mild generalized nonspecific cerebral dysfunction. On December 09, he underwent dual-chamber pacemaker insertion. He continued to improve clinically. 2D echocardiogram on December 10 showed trivial pericardial effusion, no tamponade, left ventricular ejection fraction of 55% to 60% At the time of admission, there was concern about suicidal ideation. He was evaluated by [facility] on the day of discharge. They have recommended outpatient management, and the patient will follow up as an outpatient. Many thanks for allowing me to participate in your patient's care. Please feel free to contact me with any questions or concerns. DISCHARGE MEDICATIONS: 1. MiraLAX 17 g daily. 2. Aspirin 81 mg daily. 3. Metformin 500 mg 2 times a day. 4. Lipitor 40 mg at bedtime. POSTACUTE CARE FOLLOWUP: With primary care provider in 3 days. ACTIVITY: As tolerated. DIET: Heart healthy. DISCHARGE DESTINATION: Home. TIME SPENT: Total amount of time spent coordinating this discharge: 33 minutes. Job ID: [id number]
[2019-12-13] MEDS ORDERED: Aspirin 81 mg Enteric Coated Tablet PO SCH (09:00)
--- NOTE | 2019-12-15 13:46 | EKG ---
Test Reason : STAT Blood Pressure : / mmHG Vent. Rate : 048 BPM Atrial Rate : 048 BPM P-R Int : 186 ms QRS Dur : 108 ms QT Int : 474 ms P-R-T Axes : 057 010 049 degrees QTc Int : 423 ms Marked sinus bradycardia Abnormal ECG Confirmed by OLE ALFARO ([id number]) on 12/15/2019 1:46:07 PM Referred By: VIOLETTE Confirmed By:OLE ALFARO
--- NOTE | 2019-12-15 14:10 | EKG ---
Test Reason : Blood Pressure : / mmHG Vent. Rate : 065 BPM Atrial Rate : 065 BPM P-R Int : 172 ms QRS Dur : 108 ms QT Int : 428 ms P-R-T Axes : 059 009 065 degrees QTc Int : 445 ms Electronic atrial pacemaker Non-specific intra-ventricular conduction delay Abnormal ECG Confirmed by OLE ALFARO ([id number]) on 12/15/2019 2:09:38 PM Referred By: ROBBY Confirmed By:OLE ALFARO
== END 2019-12-12 17:24 | disposition home or self-care (01) | DRG 40 ==
LOC: ERS 17:41 → 2SE 19:17 → OBSVTOIN 12-08 16:44 → IMCU/EMU 12-09 01:04 → 2SE 12-10 19:57
PROVIDERS: ADMIT Student in an Organized Health Care Education/Training Program; ATTEND Student in an Organized Health Care Education/Training Program
PROC: 02H63JZ Insertion of Pacemaker Lead into Right Atrium, Percutaneous Approach (ICD-10-PCS; principal; 2019-12-10)
PROC: 4A023N7 Measurement of Cardiac Sampling and Pressure, Left Heart, Percutaneous Approach (ICD-10-PCS; 2019-12-10)
PROC: B2111ZZ Fluoroscopy of Multiple Coronary Arteries using Low Osmolar Contrast (ICD-10-PCS; 2019-12-10)
PROC: B2151ZZ Fluoroscopy of Left Heart using Low Osmolar Contrast (ICD-10-PCS; 2019-12-10)
PROC: 0JH606Z Insertion of Pacemaker, Dual Chamber into Chest Subcutaneous Tissue and Fascia, Open Approach (ICD-10-PCS; 2019-12-10)
PROC: 02HK3JZ Insertion of Pacemaker Lead into Right Ventricle, Percutaneous Approach (ICD-10-PCS; 2019-12-10)
DX: G45.9 Transient cerebral ischemic attack, unspecified (principal); G93.41 Metabolic encephalopathy; I69.354 Hemiplegia and hemiparesis following cerebral infarction affecting left non-dominant side; E87.1 Hypo-osmolality and hyponatremia; I95.1 Orthostatic hypotension; Z20.828 Contact with and (suspected) exposure to other viral communicable diseases; G30.9 Alzheimer's disease, unspecified; F02.80 Dementia in other diseases classified elsewhere, unspecified severity, without behavioral disturbance, psychotic disturbance, mood disturbance, and anxiety; N40.0 Benign prostatic hyperplasia without lower urinary tract symptoms; F32.9 Major depressive disorder, single episode, unspecified; F17.210 Nicotine dependence, cigarettes, uncomplicated; E78.5 Hyperlipidemia, unspecified; I10 Essential (primary) hypertension; R00.1 Bradycardia, unspecified; Z91.14 Patient's other noncompliance with medication regimen; Z88.0 Allergy status to penicillin; Z88.1 Allergy status to other antibiotic agents; Z88.2 Allergy status to sulfonamides; Z88.8 Allergy status to other drugs, medicaments and biological substances; Z88.5 Allergy status to narcotic agent; Z90.49 Acquired absence of other specified parts of digestive tract
CPT/HCPCS: 33208; 36415; 36416; 70450; 70551; 71045; 74230; 75820; 80048; 81001; 82550; 82553; 82607; 82746; 82805; 83605; 83735; 84146; 84443; 84484; 85025; 85610; 85730; 87086; 87635; 93005; 93010; 93306; 93798; 93880; 95712; 95816; 95819; 96372; 96374; 99152; 99153; C1785; C1898; G0378; J1200; J1265; J1650; J2001; J2060; J2250; J2270; J3370; Q9967; U0003

== ENCOUNTER 2020-09-09 16:09 | Emergency (ER) | payer MEDICARE ==
[2020-09-09] MEDS ORDERED: Morphine 4 MG/ML VIAL ONE (16:50)
[2020-09-09 17:33] LABS: #Eosinphils 0.4 thou/uL (0.0-0.7); #Lymphocytes 3.1 thou/uL (1.20-3.40); #Monocytes 0.6 thou/uL (0.11-0.59); %Basophils 0.5 % (0.0-1.0); %Eosinophils 5.4 % (0.0-10.0); %Monocytes 7.5 % (0.0-10.0); %Neutrophils 48.6 % (42.0-75.0); Hemoglobin 13.7 g/dL (14.0-18.0); Mean Corpuscular HGB CONC 34.9 g/dL (32.0-36.0); Mean Corpuscular Hemoglobin 30.6 pg (27.0-31.0); Mean Corpuscular Volume 87.7 fL (78.0-98.0); Mean Platelet Volume 6.4 fL (7.4-10.4); Platelet Count 314 thou/uL (130-400); RBC Distribution Width 12.4 % (11.5-14.5); Red Blood Cell (RBC) Count 4.49 mill/uL (4.70-6.10); White Blood Cell (WBC) Count 8.2 thou/uL (4.8-10.8)
[2020-09-09 17:55] LABS: ALT (SGPT) 20 U/L (8-55); AST (SGOT) 17 U/L (5-34); Albumin 3.7 g/dL (3.4-4.8); Alkaline Phosphatase 67 U/L (40-110); Anion Gap 15 mmol/L (10-20); BUN (Urea Nitrogen) 11 mg/dL (8.4-25.7); Bilirubin, Total 1.1 mg/dL (0.2-1.2); Calc. Creatinine Clearance 0 mL/min (70-130); Calcium 9.1 mg/dL (7.8-10.44); Carbon Dioxide 17 mmol/L (23-31); Chloride 103 mmol/L (98-107); Globulin 2.6 g/dL (2.4-3.5); Glucose 107 mg/dL (80-115); Potassium 4.2 mmol/L (3.5-5.1); Protein, Total 6.3 g/dL (5.8-8.1); Sodium 131 mmol/L (136-145)
[2020-09-09 18:18] LABS: Bilirubin Negative (Negative); Blood, Urine Negative (Negative); Clarity Clear (Clear); Glucose, Urine (Dipstick) Normal (Negative); Ketone, Urine Negative (Negative); Leukocyte Negative Leu/uL (Negative); Nitrite Negative (Negative); Protein, Urine (Dipstick) Negative (Neg-Trace); Urobilinogen Normal mg/dL (Less than 2)
[2020-09-09 18:20] LABS: Specific Gravity, Urine 1.044 (1.002-1.036)
[2020-09-09 18:27] LABS: RBC/HPF None Seen HPF (0-3)
[2020-09-09 18:28] LABS: Bacteria/HPF None Seen HPF (None Seen); Squamous Epithelial 0-3 HPF (0-3); WBC/HPF None Seen HPF (0-3)
== END 2020-09-09 18:20 | disposition home or self-care (01) ==
LOC: ERS 16:09
DX: N41.0 Acute prostatitis (principal); E11.9 Type 2 diabetes mellitus without complications; F17.210 Nicotine dependence, cigarettes, uncomplicated; Z79.84 Long term (current) use of oral hypoglycemic drugs
CPT/HCPCS: 36415; 74177; 80053; 81003; 83605; 85025; 87040; 87086; 96374; J2270

== ENCOUNTER 2020-11-25 11:17 | Outpatient (CLI) | payer MEDICARE ==
[2020-11-26 13:29] LABS: SARS-CoV-2 PCR by NAA Not Detected (NotDetected)
== END 2020-11-25 11:18 | disposition home or self-care (01) ==
LOC: LABBT 11:17
PROVIDERS: ATTEND Internal Medicine Gastroenterology
DX: Z01.812 Encounter for preprocedural laboratory examination (principal); H65.23 Chronic serous otitis media, bilateral; Z20.822 Contact with and (suspected) exposure to COVID-19
CPT/HCPCS: U0003; U0005

== ENCOUNTER 2020-11-30 10:54 | Day surgery (SDC) | payer MEDICARE ==
[2020-11-29 12:04] VITALS: BMI 26.8
[2020-11-30] MEDS ORDERED: PROPOFOL 200 MG/20 ML VIAL ONE (13:36)
[2020-11-30] MEDS ORDERED: Fentanyl 100 MCG/2 ML VIAL ONE (14:39)
== END 2020-11-30 17:25 | disposition home or self-care (01) ==
LOC: SDC 10:54
PROVIDERS: ATTEND Internal Medicine Gastroenterology
PROC: 0DJD8ZZ Inspection of Lower Intestinal Tract, Via Natural or Artificial Opening Endoscopic (ICD-10-PCS; principal; 2020-11-30)
PROC: 0DH63UZ Insertion of Feeding Device into Stomach, Percutaneous Approach (ICD-10-PCS; 2020-11-30)
DX: R13.12 Dysphagia, oropharyngeal phase (principal); R10.9 Unspecified abdominal pain; R19.7 Diarrhea, unspecified; E11.9 Type 2 diabetes mellitus without complications; F03.90 Unspecified dementia, unspecified severity, without behavioral disturbance, psychotic disturbance, mood disturbance, and anxiety; R63.4 Abnormal weight loss; Z68.28 Body mass index [BMI] 28.0-28.9, adult; Z86.73 Personal history of transient ischemic attack (TIA), and cerebral infarction without residual deficits; Z79.82 Long term (current) use of aspirin; Z79.84 Long term (current) use of oral hypoglycemic drugs; Z79.899 Other long term (current) drug therapy; Z88.0 Allergy status to penicillin; Z88.1 Allergy status to other antibiotic agents; Z88.2 Allergy status to sulfonamides; Z88.5 Allergy status to narcotic agent; Z88.8 Allergy status to other drugs, medicaments and biological substances; Z95.0 Presence of cardiac pacemaker
CPT/HCPCS: J0690; J2704; J3010

== ENCOUNTER 2020-12-06 14:43 | Emergency (ER) | payer MEDICARE | END 2020-12-06 17:41 | disposition left against medical advice (07) | LOC: ERS 14:43 | DX: Z53.21 Procedure and treatment not carried out due to patient leaving prior to being seen by health care provider (principal) ==

== ENCOUNTER 2023-05-22 18:21 | Inpatient (IN) | payer OTHER ==
[~2023-05-22 18:21] MED LIST: Iopamidol 370 76% 100 ML VIAL ONE
[2023-05-22] MEDS ORDERED: Morphine 4 MG/ML VIAL ONE (18:43)
[2023-05-22] MEDS ORDERED: Ondansetron PF 4 MG/2 ML Vial ONE ×2 (18:43→20:56)
[2023-05-22 19:33] LABS: #Monocytes 0.2 thou/uL (0.11-0.59); #Neutrophils 4.9 thou/uL (1.40-6.50); %Basophils 0.2 % (0.0-1.0); %Lymphocytes 9.7 % (21.0-51.0); %Monocytes 3.5 % (0.0-10.0); %Neutrophils 86.2 % (42.0-75.0); Hematocrit 40.6 % (42.0-52.0); Mean Corpuscular HGB CONC 34.5 g/dL (32.0-36.0); Mean Corpuscular Hemoglobin 30.2 pg (27.0-31.0); Mean Corpuscular Volume 87.5 fl (78.0-98.0); Platelet Count 286 10x3/uL (130-400); RBC Distribution Width 12.8 % (11.5-14.5); Red Blood Cell (RBC) Count 4.64 mill/uL (4.70-6.10); White Blood Cell (WBC) Count 5.7 10x3/uL (4.8-10.8)
[2023-05-22 20:00] LABS: ALT (SGPT) 19 U/L (8-55); AST (SGOT) 26 U/L (5-34); Albumin 4.4 g/dL (3.4-4.8); Alkaline Phosphatase 75 U/L (40-110); Anion Gap 19 mmol/L (10-20); BUN (Urea Nitrogen) 31 mg/dL (8.4-25.7); Bilirubin, Total 1.6 mg/dL (0.2-1.2); Calc. Creatinine Clearance 0 mL/min (70-130); Calcium 9.6 mg/dL (7.8-10.44); Carbon Dioxide 19 mmol/L (23-31); Chloride 103 mmol/L (98-107); Estimated GFR 96; Glucose 131 mg/dL (80-115); Lipase 8 U/L (8-78); Potassium 3.9 mmol/L (3.5-5.1); Protein, Total 7.4 g/dL (5.8-8.1); Sodium 137 mmol/L (136-145)
[2023-05-22] MEDS ORDERED: Prochlorperazine 10 MG/2 ML VIAL ONE (21:39)
[2023-05-22] MEDS ORDERED: Acetaminophen 325 MG TAB PO PRN (22:00)
[2023-05-22] MEDS ORDERED: Acetaminophen 650 MG Suppository PR PRN (22:00)
[2023-05-23] MEDS: Dextrose 5%-Lactated Ringers 1,000 ML IV SCH (01:10)
[2023-05-23] MEDS: Ondansetron ODT 4 MG TAB PO PRN (01:13)
[2023-05-23] MEDS: Ketorolac Tromethamine 30 MG (1 mL) VIAL IVP SCH (03:13)
[2023-05-23 05:33] LABS: #Monocytes 0.7 thou/uL (0.11-0.59); #Neutrophils 5.2 thou/uL (1.40-6.50); %Basophils 0.1 % (0.0-1.0); %Eosinophils 0.1 % (0.0-10.0); %Lymphocytes 21.6 % (21.0-51.0); %Monocytes 9.2 % (0.0-10.0); %Neutrophils 68.7 % (42.0-75.0); Hematocrit 36.2 % (42.0-52.0); Hemoglobin 12.6 g/dL (14.0-18.0); Mean Corpuscular HGB CONC 34.8 g/dL (32.0-36.0); Mean Corpuscular Hemoglobin 30.3 pg (27.0-31.0); Mean Platelet Volume 9.2 fL (7.4-10.4); Platelet Count 265 10x3/uL (130-400); RBC Distribution Width 12.9 % (11.5-14.5); Red Blood Cell (RBC) Count 4.16 mill/uL (4.70-6.10); White Blood Cell (WBC) Count 7.6 10x3/uL (4.8-10.8)
[2023-05-23 05:57] LABS: ALT (SGPT) 15 U/L (8-55); AST (SGOT) 19 U/L (5-34); Albumin 3.8 g/dL (3.4-4.8); Alkaline Phosphatase 64 U/L (40-110); Anion Gap 16 mmol/L (10-20); BUN (Urea Nitrogen) 28 mg/dL (8.4-25.7); Bilirubin, Total 1.5 mg/dL (0.2-1.2); Calc. Creatinine Clearance 101 mL/min (70-130); Calcium 8.8 mg/dL (7.8-10.44); Carbon Dioxide 20 mmol/L (23-31); Chloride 107 mmol/L (98-107); Estimated GFR 97; Globulin 2.6 g/dL (2.4-3.5); Glucose 125 mg/dL (80-115); Potassium 3.7 mmol/L (3.5-5.1); Protein, Total 6.4 g/dL (5.8-8.1); Sodium 139 mmol/L (136-145)
[2023-05-23] MEDS: Ondansetron PF 4 MG/2 ML Vial IVP PRN (06:10)
[2023-05-23 06:19] LABS: Bacteria/HPF None Seen HPF (None Seen); Bilirubin Negative (Negative); Blood, Urine Negative (Negative); CAUTI Indications for Culture Dysuria,urgency,freq; Clarity Clear (Clear); Glucose, Urine (Dipstick) Normal (Negative); Ketone, Urine 100 mg/dL (Negative); Leukocyte Negative Leu/uL (Negative); Nitrite Negative (Negative); Protein, Urine (Dipstick) 30 mg/dL (Neg-Trace); Squamous Epithelial None Seen HPF (0-3); Urobilinogen Normal mg/dL (Less than 2); WBC/HPF 0-3 HPF (0-3); pH, Urine 6.5 (5.0-9.0)
[2023-05-23 06:20] LABS: Urine Culture Reflex No No
[2023-05-23] MEDS: Famotidine/PF 20 mg/2ml Vial SLOW IVP SCH (08:58)
[2023-05-23] MEDS: Ketorolac Tromethamine 30 MG (1 mL) VIAL IVP PRN (09:00)
[2023-05-23] MEDS ORDERED: MD-Gastroview 120 ML BOT ONE (09:24)
[2023-05-23] MEDS: Famotidine 20 MG TAB PO SCH (11:35)
[2023-05-23 12:03] VITALS: BMI 25.1
[2023-05-23] MEDS: Tamsulosin HCl 0.4 MG CAP PO SCH (12:23)
[2023-05-24 04:08] VITALS: TEMP 97.6
[2023-05-24] MEDS ORDERED: EPINEPHrine 1 MG/ML VIAL ONE (06:54)
[2023-05-24] MEDS ORDERED: Bupivacaine 0.25% HCL 30 ML VIAL ONE (06:54)
[2023-05-24] MEDS ORDERED: fentaNYL PF 100 MCG/2 ML SYRINGE ONE (06:59)
[2023-05-24] MEDS ORDERED: PROPOFOL 20 ML ONE (06:59)
[2023-05-24] MEDS ORDERED: Lidocaine 1% PF 5 ML VIAL ONE (06:59)
[2023-05-24] MEDS ORDERED: Rocuronium Bromide 10 MG/ML (10ML VIAL) ONE (06:59)
[2023-05-24] MEDS ORDERED: Sodium Chloride 0.9% 100 ML ONE (07:50)
[2023-05-24] MEDS ORDERED: CEFAZOLIN 2 GM VIAL ONE (07:50)
[2023-05-24] MEDS ORDERED: SUGAMMADEX SODIUM 200 MG/2 ML VIAL ONE (08:15)
[2023-05-24] MEDS ORDERED: Ondansetron PF 4 MG/2 ML Vial ONE (08:15)
[2023-05-24] MEDS ORDERED: fentaNYL 50 mcg/mL 1 mL Vial ONE (08:50)
[2023-05-24] MEDS ORDERED: Dexamethasone 20 MG/5 ML VIAL ONE (09:02)
[2023-05-24] MEDS ORDERED: Morphine 2 MG/ML VIAL SLOW IVP PRN (10:08)
[2023-05-24] MEDS ORDERED: Ibuprofen 600 MG TAB PO PRN (11:00)
[2023-05-24] MEDS: Ketorolac Tromethamine 30 MG (1 mL) VIAL IVP PRN (11:12)
[2023-05-24] MEDS: Finasteride 5 MG TAB PO SCH (11:13)
[2023-05-24] MEDS: Acetaminophen 500 MG TAB PO SCH (11:14)
[2023-05-24] MEDS: traMADol HCl 50 MG TAB PO PRN (14:53)
[2023-05-24] MEDS: Sodium Chloride 0.9% 1,000 ML IV SCH (14:55)
[2023-05-24 16:22] VITALS: BP 140/60
[2023-05-24] MEDS ORDERED: CEFAZOLIN 2 GM in Sodium Chloride 0.9% 100 ML IVPB SCH (16:45)
[2023-05-24] MEDS ORDERED: Senokot S 8.6-50 MG TAB PO SCH (21:00)
[2023-05-25] MEDS ORDERED: Polyethylene Glycol 3350 17 GM Packet PO SCH (09:00)
[2023-05-26] MEDS ORDERED: FLU VACC QS2023-24(6MOS UP)/PF 60 MCG/0.5 ML SYRINGE IM ONE (09:00)
== END 2023-05-24 18:25 | disposition home or self-care (01) | DRG 352 ==
LOC: ERS 18:21 → ERHOLD 22:23 → MSONC 05-23 00:57
PROVIDERS: ADMIT Student in an Organized Health Care Education/Training Program; ATTEND Family Medicine
PROC: 0YU54JZ Supplement Right Inguinal Region with Synthetic Substitute, Percutaneous Endoscopic Approach (ICD-10-PCS; principal; 2023-05-24)
PROC: 8E0W4CZ Robotic Assisted Procedure of Trunk Region, Percutaneous Endoscopic Approach (ICD-10-PCS; 2023-05-24)
PROC: 3E033XZ Introduction of Vasopressor into Peripheral Vein, Percutaneous Approach (ICD-10-PCS; 2023-05-24)
DX: K40.30 Unilateral inguinal hernia, with obstruction, without gangrene, not specified as recurrent (principal); N40.1 Benign prostatic hyperplasia with lower urinary tract symptoms; E11.9 Type 2 diabetes mellitus without complications; I69.919 Unspecified symptoms and signs involving cognitive functions following unspecified cerebrovascular disease; F01.50 Vascular dementia, unspecified severity, without behavioral disturbance, psychotic disturbance, mood disturbance, and anxiety; Z79.899 Other long term (current) drug therapy; Z88.1 Allergy status to other antibiotic agents; Z88.8 Allergy status to other drugs, medicaments and biological substances; Z88.0 Allergy status to penicillin; Z88.2 Allergy status to sulfonamides; Z79.82 Long term (current) use of aspirin; Z79.84 Long term (current) use of oral hypoglycemic drugs; M19.90 Unspecified osteoarthritis, unspecified site; Z95.0 Presence of cardiac pacemaker; F32.A Depression, unspecified; F17.290 Nicotine dependence, other tobacco product, uncomplicated; Z82.49 Family history of ischemic heart disease and other diseases of the circulatory system
CPT/HCPCS: 36415; 74177; 74250; 80053; 81001; 83605; 83690; 84153; 85025; 93005; 96374; 96375; A4314; C1781; J0171; J0665; J0780; J1100; J1885; J2270; J2405; J2704; J3010; J3490; Q0162; Q9963; Q9967; S0028

== ENCOUNTER 2024-03-01 12:46 | Inpatient (IN) | payer MEDICARE, OTHER ==
[2024-03-01] MEDS ORDERED: Iopamidol 370 76% 100 ML VIAL ONE (12:53)
[2024-03-01] MEDS ORDERED: Dextrose 50% Abboject 50 ML SYRINGE SLOW IVP PRN (14:34)
[2024-03-01] MEDS ORDERED: Dextrose 5% in Water 1,000 ML IV PRN (14:34)
[2024-03-01] MEDS ORDERED: Glucagon 1 MG/ML KIT IM PRN (14:34)
[2024-03-01] MEDS ORDERED: hydrALAZINE 20 MG/ML VIAL SLOW IVP PRN (14:34)
[2024-03-01 17:55] LABS: Bilirubin Negative (Negative); Blood, Urine Negative (Negative); Clarity Clear (Clear); Glucose, Urine (Dipstick) Normal (Negative); Ketone, Urine Negative (Negative); Leukocyte Negative Leu/uL (Negative); Nitrite Negative (Negative); Protein, Urine (Dipstick) Negative (Neg-Trace); Urobilinogen Normal mg/dL (Less than 2)
[2024-03-01 18:02] LABS: Amphetamine Not Detected (NotDetected); Barbiturates Screen Not Detected (NotDetected); Benzodiazepine Screen Not Detected (NotDetected); Cocaine Metabolite Screen Not Detected (NotDetected); Methadone Not Detected (NotDetected); Methamphetamine Not Detected (NotDetected); Opiate Screen Not Detected (NotDetected); Oxycodone Screen Not Detected (NotDetected); Phencyclidine (PCP) Not Detected (NotDetected); THC/Cannabinoid Screen Detected (NotDetected); Tricyclic Screen Not Detected (NotDetected)
[2024-03-01 19:29] VITALS: BMI 26.3
[2024-03-01] MEDS: Atorvastatin Calcium 40 MG TAB PO SCH (21:09)
[2024-03-01] MEDS: Famotidine/PF 20 mg/2ml Vial SLOW IVP SCH (21:09)
[2024-03-01] MEDS: Insulin Regular, Human 100 UNIT/ML 10 ML VIAL SC PRN (21:17)
[2024-03-02 04:14] LABS: #Basophils Less than 0.03 10x3/uL (0.0-0.2); #Eosinophils Less than 0.03 10x3/uL (0.0-0.7); %Basophils 0.2 % (0.0-1.0); %Lymphocytes 24.7 % (21.0-51.0); %Neutrophils 69.7 % (42.0-75.0); Hematocrit 41.3 % (42.0-52.0); Hemoglobin 14.4 g/dL (14.0-18.0); Mean Corpuscular HGB CONC 34.9 g/dL (32.0-36.0); Mean Corpuscular Hemoglobin 29.9 pg (27.0-31.0); Mean Corpuscular Volume 85.9 fL (78.0-98.0); Mean Platelet Volume 9.4 fL (7.4-10.4); Platelet Count 315 10x3/uL (130-400); RBC Distribution Width 12.7 % (11.5-14.5); Red Blood Cell (RBC) Count 4.81 mill/uL (4.70-6.10)
[2024-03-02] MEDS: Calcium Carbonate 500 MG ChewTAB PO SCH (04:35)
[2024-03-02 04:43] LABS: Anion Gap 15 mmol/L (10-20); BUN (Urea Nitrogen) 15 mg/dL (8.4-25.7); Calc. Creatinine Clearance 124 mL/min (70-130); Calcium 9.4 mg/dL (7.8-10.44); Carbon Dioxide 21 mmol/L (23-31); Cardiac Risk 3.7 (Less than 4.5); Chloride 104 mmol/L (98-107); Cholesterol 232 mg/dl (< 200 Desired); Estimated GFR 101; Glucose 141 mg/dL (80-115); HDL Cholesterol 63 mg/dL (>60 Neg Risk); LDL Cholesterol, Calculated 157 mg/dL; Magnesium 1.8 mg/dL (1.6-2.6); Potassium 4.3 mmol/L (3.5-5.1); Sodium 136 mmol/L (136-145); Triglycerides 59 mg/dL (Less than 150)
[2024-03-02] MEDS: Acetaminophen 325 MG TAB PO PRN (06:58)
[2024-03-02] MEDS: Aspirin 81 mg Enteric Coated Tablet PO SCH (09:05)
[2024-03-02] MEDS: Tamsulosin HCl 0.4 MG CAP PO SCH (09:05)
[2024-03-02] MEDS: Finasteride 5 MG TAB PO SCH (09:05)
[2024-03-02] MEDS: Clopidogrel Bisulfate 75 MG TAB PO SCH (09:05)
[2024-03-02] MEDS: Enoxaparin 40 MG (0.4 mL) SYRINGE SC SCH (09:05)
[2024-03-02] MEDS: traMADol HCl 50 MG TAB PO PRN (12:39)
[2024-03-02] MEDS: Losartan 25 MG TAB PO SCH (13:14)
[2024-03-02] MEDS: Nystatin Cream 30 GM TUBE TOP SCH (20:36)
[2024-03-03 07:32] LABS: Anion Gap 13 mmol/L (10-20); BUN (Urea Nitrogen) 17 mg/dL (8.4-25.7); Calc. Creatinine Clearance 119 mL/min (70-130); Calcium 8.8 mg/dL (7.8-10.44); Carbon Dioxide 23 mmol/L (23-31); Chloride 103 mmol/L (98-107); Estimated GFR 99; Glucose 108 mg/dL (80-115); Magnesium 1.8 mg/dL (1.6-2.6); Potassium 3.8 mmol/L (3.5-5.1); Sodium 135 mmol/L (136-145)
[2024-03-03 07:35] LABS: Troponin I Less than 0.010 ng/mL (< 0.028)
[2024-03-03] MEDS: Losartan 25 MG TAB PO SCH (08:48)
[2024-03-03] MEDS: Ketorolac Tromethamine 30 MG (1 mL) VIAL IVP SCH (12:39)
[2024-03-03 12:55] LABS: Troponin I Less than 0.010 ng/mL (< 0.028)
[2024-03-03] MEDS: Nystatin 500,000 UNITS/5 ML UDCUP SSW SCH (21:34)
[2024-03-04] MEDS: Pantoprazole DR 40 MG TAB PO SCH (09:56)
[2024-03-04] MEDS: Amlodipine 5 MG TAB PO SCH (09:56)
[2024-03-05] MEDS ORDERED: Polyethylene Glycol 3350 17 GM Packet PO PRN (09:33)
[2024-03-05] MEDS ORDERED: Docusate 100 MG CAP PO PRN (09:33)
[2024-03-05] MEDS: Cyclobenzaprine 10 MG TAB PO PRN (09:34)
[2024-03-05] MEDS: Fioricet 325/50/40 mg Tablet PO SCH ×2 (09:42→20:46)
[2024-03-06 04:05] LABS: Hematocrit 39.9 % (42.0-52.0); Hemoglobin 13.8 g/dL (14.0-18.0); Mean Corpuscular HGB CONC 34.6 g/dL (32.0-36.0); Mean Corpuscular Hemoglobin 29.7 pg (27.0-31.0); Mean Platelet Volume 9.1 fL (7.4-10.4); Platelet Count 268 10x3/uL (130-400); RBC Distribution Width 12.5 % (11.5-14.5); Red Blood Cell (RBC) Count 4.64 mill/uL (4.70-6.10)
[2024-03-06 06:47] LABS: Anion Gap 15 mmol/L (10-20); BUN (Urea Nitrogen) 18 mg/dL (8.4-25.7); Calc. Creatinine Clearance 126 mL/min (70-130); Calcium 9.2 mg/dL (7.8-10.44); Carbon Dioxide 20 mmol/L (23-31); Chloride 104 mmol/L (98-107); Estimated GFR 101; Glucose 117 mg/dL (80-115); Potassium 3.8 mmol/L (3.5-5.1); Sodium 135 mmol/L (136-145)
[2024-03-07] MEDS: FLU (Fluad Triv) TS24-25 (65UP)/MF59C/PF 45 MCG/0.5 ML Syringe IM ONE (13:40)
[2024-03-07 20:23] VITALS: BMI 26.3
[2024-03-08 03:57] LABS: Hematocrit 42.5 % (42.0-52.0); Hemoglobin 14.7 g/dL (14.0-18.0); Mean Corpuscular HGB CONC 34.6 g/dL (32.0-36.0); Mean Corpuscular Hemoglobin 29.6 pg (27.0-31.0); Mean Corpuscular Volume 85.7 fL (78.0-98.0); Mean Platelet Volume 9.2 fL (7.4-10.4); Platelet Count 263 10x3/uL (130-400); RBC Distribution Width 12.3 % (11.5-14.5); Red Blood Cell (RBC) Count 4.96 mill/uL (4.70-6.10)
[2024-03-08 04:31] LABS: Anion Gap 13 mmol/L (10-20); BUN (Urea Nitrogen) 13 mg/dL (8.4-25.7); Calc. Creatinine Clearance 119 mL/min (70-130); Calcium 9.4 mg/dL (7.8-10.44); Carbon Dioxide 24 mmol/L (23-31); Chloride 105 mmol/L (98-107); Estimated GFR 99; Glucose 116 mg/dL (80-115); Sodium 138 mmol/L (136-145)
[2024-03-09] MEDS ORDERED: Docusate 100 MG CAP PO PRN (07:57)
[2024-03-09] MEDS ORDERED: Polyethylene Glycol 3350 17 GM Packet PO PRN (07:57)
[2024-03-09] MEDS: Docusate 100 MG CAP PO SCH (09:18)
[2024-03-09] MEDS: Polyethylene Glycol 3350 17 GM Packet PO SCH (09:19)
[2024-03-11 16:04] VITALS: BP 116/72; TEMP 98.5
== END 2024-03-11 16:36 | disposition swing bed (61) | DRG 74 ==
LOC: 2NO 12:46 → 2SE 13:44
PROVIDERS: ADMIT Internal Medicine; ATTEND Internal Medicine
DX: M54.12 Radiculopathy, cervical region (principal); E87.1 Hypo-osmolality and hyponatremia; I69.354 Hemiplegia and hemiparesis following cerebral infarction affecting left non-dominant side; F03.93 Unspecified dementia, unspecified severity, with mood disturbance; M48.02 Spinal stenosis, cervical region; I69.391 Dysphagia following cerebral infarction; R13.12 Dysphagia, oropharyngeal phase; G89.29 Other chronic pain; M54.2 Cervicalgia; F12.90 Cannabis use, unspecified, uncomplicated; F17.290 Nicotine dependence, other tobacco product, uncomplicated; I10 Essential (primary) hypertension; N40.1 Benign prostatic hyperplasia with lower urinary tract symptoms; R33.8 Other retention of urine; E11.40 Type 2 diabetes mellitus with diabetic neuropathy, unspecified; R07.9 Chest pain, unspecified; F32.9 Major depressive disorder, single episode, unspecified; E78.5 Hyperlipidemia, unspecified; Z71.6 Tobacco abuse counseling; Z95.0 Presence of cardiac pacemaker; Z88.0 Allergy status to penicillin; Z88.8 Allergy status to other drugs, medicaments and biological substances; Z88.5 Allergy status to narcotic agent; Z88.2 Allergy status to sulfonamides; Z90.49 Acquired absence of other specified parts of digestive tract; Z79.82 Long term (current) use of aspirin; Z79.01 Long term (current) use of anticoagulants; Z79.899 Other long term (current) drug therapy
CPT/HCPCS: 36415; 36416; 70496; 70498; 70551; 71045; 72100; 72141; 74230; 80048; 80061; 80306; 81003; 83735; 84443; 84484; 85025; 85027; 93306; J1650; J1815; J1885; J3490; Q9967

== ENCOUNTER 2024-05-04 08:26 | Outpatient (CLI) | payer MEDICARE ==
[2024-05-04] MEDS ORDERED: Magnevist 469MG/ML 20 ML VIAL ONE (15:21)
== END 2024-05-04 08:27 | disposition home or self-care (01) ==
LOC: MRI 08:26
PROVIDERS: ATTEND Neurological Surgery
DX: M54.12 Radiculopathy, cervical region (principal); M48.02 Spinal stenosis, cervical region; M48.03 Spinal stenosis, cervicothoracic region
CPT/HCPCS: 72156; 76014; 76018